=== PATIENT | female | born 1945 | race African-American/Black ===

== ENCOUNTER 2018-03-10 13:29 | Emergency (ER) | payer MEDICARE, BC ==
--- NOTE | 2018-03-10 15:07 | RADIOLOGY REPORT (SQ) ---
EXAM DESCRIPTION: KNEE RIGHT 3 VIEWS COMPLETED DATE/TIME: 03/10/2018 2:55 pm REASON FOR STUDY: fall pain COMPARISON: None. NUMBER OF VIEWS: Three views. TECHNIQUE: AP, lateral, and sunrise patella radiographic images acquired of the right knee. LIMITATIONS: None. FINDINGS: MINERALIZATION: Normal. BONES: No acute fracture or dislocation. No worrisome bone lesions. JOINT: No gross joint effusion. Advanced patellofemoral and medial compartment osteoarthritis with b one-on-bone appearance and bulky bony spurring. Moderate lateral compartment joint space narrowing w ith bony spurring SOFT TISSUES: No soft tissue swelling. No radio-opaque foreign body. OTHER: No other significant finding. IMPRESSION: Tricompartment osteoarthritis. No acute fracture or malalignment TECHNICAL DOCUMENTATION: JOB ID: [id number]- All Rights Reserved Reading location - IP/workstation name: [email or web address]
--- NOTE | 2018-03-10 15:08 | RADIOLOGY REPORT (SQ) ---
EXAM DESCRIPTION: HIP RIGHT AP/LATERAL COMPLETED DATE/TIME: 03/10/2018 2:55 pm REASON FOR STUDY: fall pain fell, injured, right hip pain COMPARISON: None. NUMBER OF VIEWS: Two views. TECHNIQUE: AP pelvis and additional frog-leg view of the right hip. LIMITATIONS: None. FINDINGS: MINERALIZATION: Normal. RIGHT HIP: No fracture or dislocation. No worrisome bone lesions. LEFT HIP: No fracture or dislocation. No worrisome bone lesions. PUBIS AND ISCHIUM: No fracture. PELVIS: No fracture. SACRUM: No fracture or dislocation. No worrisome bone lesions. Moderate bilateral SI joint sclerosis LOWER LUMBAR SPINE: Disc space loss of height and facet arthropathy at L4-5 and L5-S1 SOFT TISSUES: No findings. OTHER: No other significant finding. IMPRESSION: No acute fracture or malalignment right hip or bony pelvis TECHNICAL DOCUMENTATION: JOB ID: [id number] [employer]- All Rights Reserved Reading location - IP/workstation name: [email or web address]
--- NOTE | 2018-03-10 15:54 | ER Document Report ---
ED General - General Chief Complaint: Knee Pain Stated Complaint: DIZZINESS Time Seen by Provider: 03/10/18 13:41 TRAVEL OUTSIDE OF THE [place] IN LAST 30 DAYS: No - HPI Patient complains to provider of: Right knee pain Notes: Patient coming in for evaluation of right knee pain. Family at bedside. Family states approximately 1 week ago the patient fell off a porch and since that times had trouble with her right knee. States increasing pain in the last few days and decreasing ablation because of the pain. Patient also complaining of pain in the right hip. Patient otherwise denies any other symptoms denies any fever chills nausea by diarrhea denies any loss consciousness and the patient felt the fourth. Patient resting healthy upon my evaluation Past Medical History - Social History Smoking Status: Former Smoker Chew tobacco use (# tins/day): No Frequency of alcohol use: None Drug Abuse: None Family History: Reviewed & Not Pertinent Patient has suicidal ideation: No Patient has homicidal ideation: No Renal/ Medical History: Denies: Hx Peritoneal Dialysis Review of Systems - Review of Systems Constitutional: No symptoms reported EENT: No symptoms reported Cardiovascular: No symptoms reported Respiratory: No symptoms reported Gastrointestinal: No symptoms reported Genitourinary: No symptoms reported Female Genitourinary: No symptoms reported Musculoskeletal: Other - Knee pain Skin: No symptoms reported Hematologic/Lymphatic: No symptoms reported Neurological/Psychological: No symptoms reported -: Yes All other systems reviewed and negative Physical Exam - Vital signs Interpretation: Normal - General General appearance: Appears well, Alert - HEENT Head: Normocephalic, Atraumatic Eyes: Normal Pupils: PERRL - Respiratory Respiratory status: No respiratory distress Chest status: Nontender Breath sounds: Normal Chest palpation: Normal - Cardiovascular Rhythm: Regular Heart sounds: Normal auscultation Murmur: No - Abdominal Inspection: Morbidly Obese Distension: No distension Bowel sounds: Normal Tenderness: Nontender Organomegaly: No organomegaly - Back Back: Normal, Nontender - Extremities General upper extremity: Normal inspection, Nontender, Normal color, Normal ROM , Normal temperature General lower extremity: Normal inspection, Tender - Tenderness to palpation of the right knee and to the right hip, Normal color, Normal ROM, Normal temperature. No: Celine's sign - Neurological Neuro grossly intact: Yes Cognition: Normal Orientation: AAOx4 [place] Coma Scale Eye Opening: Spontaneous Rick Coma Scale Verbal: Oriented Rick Coma Scale Motor: Obeys Commands Rick Coma Scale Total: 15 Speech: Normal Motor strength normal: LUE, RUE, LLE, RLE Sensory: Normal - Psychological Associated symptoms: Normal affect, Normal mood - Skin Skin Temperature: Warm Skin Moisture: Dry Skin Color: Normal Course - Re-evaluation Re-evalutation: 03/10/18 19:04 X-rays are negative at this time does show diffuse arthritis no signs of fracture. Patient was given a Cade wrap lidocaine patch recommend Tylenol Motrin for pain control we will give the patient a prescription in for a walker that she is already using a cane for ambulation recommend follow-up with PCP. Discharge - Discharge Clinical Impression: Arthritis Knee pain Qualifiers: Chronicity: acute Laterality: right Qualified Code(s): M25.561 - Pain in right knee Condition: Good Disposition: HOME, SELF-CARE Instructions: Cade Wrap ([facility]), Family Physicians / Practices, Ice & Elevation ( [facility]), Sprained Knee ([facility]) Additional Instructions: Your evaluation does not show any signs of fracture however does show diffuse osteoarthritis within the right knee. I do believe any failure data G more likely sprained her knee I would highly recommend that she wear an Cade wrap for support and also use a walker when ambulating I would recommend following up with a primary care physician listed for further evaluation Tylenol and Motrin for pain he may also use Lidoderm patches that are available [id number]. Prescriptions: Ibuprofen [Motrin 600 mg Tablet] 600 mg PO Q8HP PRN #21 tablet PRN Reason: Walker [Folding Walker] 1 each MC ASDIR PRN #1 each PRN Reason: Referrals: TREASURE ROSE MD [HONORARY] - Follow up as needed
[2018-03-10] MEDS ORDERED: LIDOCAINE 5% (700 MG) TRANSDERMAL ADH..PATCH TP ONE (15:55)
== END 2018-03-10 20:48 | disposition home or self-care (01) ==
LOC: ER 13:29
DX: M17.11 Unilateral primary osteoarthritis, right knee (principal); M25.561 Pain in right knee; M25.551 Pain in right hip; W17.89XA Other fall from one level to another, initial encounter; Z87.891 Personal history of nicotine dependence
CPT/HCPCS: 99284

== ENCOUNTER 2018-03-20 15:59 | Inpatient (IN) | payer MEDICARE, BC ==
[2018-03-20] MEDS ORDERED: NORMAL SALINE 1000 ML 1,000 ML IV ONE (16:57)
[2018-03-20 17:27] LABS: ABSOLUTE BASOPHILS # (AUTO) 0.1 10^3/uL (0.0-0.2); ABSOLUTE EOSINOPHILS # (AUTO) 0.4 10^3/uL (0.0-0.6); ABSOLUTE LYMPHOCYTES (AUTO) 0.8 10^3/uL (0.5-4.7); ABSOLUTE MONOCYTES (AUTO) 1.1 10^3/uL (0.1-1.4); ABSOLUTE NEUT (AUTO) 11.1 10^3/uL (1.7-8.2); EOSINOPHILS % (AUTO) 2.7 % (0-6); HEMATOCRIT 42.4 % (36.0-47.0); HEMOGLOBIN 13.5 g/dL (12.0-15.5); LYMPHOCYTES % (AUTO) 5.9 % (13-45); MEAN CORPUSCULAR HEMOGLOBIN 27.1 pg (27.0-33.4); MEAN CORPUSCULAR HGB CONC 31.9 g/dL (32.0-36.0); MEAN CORPUSCULAR VOLUME 85 fl (80-97); MONOCYTES % (AUTO) 8.1 % (3-13); PLATELET COUNT 293 10^3/uL (150-450); RED BLOOD COUNT 4.99 10^6/uL (3.72-5.28); RED CELL DISTRIBUTION WIDTH 16.2 % (11.5-14.0); SEGMENTED NEUTROPHILS % (AUTO) 82.3 % (42-78); TOTAL CELLS COUNTED % (AUTO) 100 %; WHITE BLOOD COUNT 13.5 10^3/uL (4.0-10.5)
[2018-03-20 17:34] LABS: INTERNATIONAL RATION (INR) 1.01; PROTHROMBIN TIME 13.8 SEC (11.4-15.4)
--- NOTE | 2018-03-20 17:34 | RADIOLOGY REPORT (SQ) ---
EXAM DESCRIPTION: CHEST SINGLE VIEW COMPLETED DATE/TIME: 03/20/2018 5:23 pm REASON FOR STUDY: ams, tachycardia COMPARISON: None. EXAM PARAMETERS: NUMBER OF VIEWS: One view. TECHNIQUE: Single frontal radiographic view of the chest acquired. RADIATION DOSE: NA LIMITATIONS: None. FINDINGS: LUNGS AND PLEURA: No opacities, masses or pneumothorax. No pleural effusion. MEDIASTINUM AND HILAR STRUCTURES: No masses. Contour normal. HEART AND VASCULAR STRUCTURES: Heart size is borderline. There is ectasia of the ascending aorta. T ortuosity of the descending aorta. BONES: No acute findings. HARDWARE: None in the chest. OTHER: No other significant finding. IMPRESSION: Borderline cardiomegaly with no pulmonary edema. Ectasia of the ascending aorta and tor tuosity of the descending aorta. TECHNICAL DOCUMENTATION: JOB ID: [id number] [employer]- All Rights Reserved Reading location - IP/workstation name: [email or web address]
[2018-03-20 17:45] LABS: ALANINE AMINOTRANSFERASE 37 U/L (9-52); ALBUMIN 3.3 g/dL (3.5-5.0); ALKALINE PHOSPHATASE 89 U/L (38-126); ANION GAP 13 (5-19); ASPARTATE AMINO TRANSFERASE 89 U/L (14-36); BILIRUBIN,DIRECT 0.5 mg/dL (0.0-0.4); BILIRUBIN,TOTAL 1.1 mg/dL (0.2-1.3); BLOOD UREA NITROGEN 43 mg/dL (7-20); CALCIUM 8.6 mg/dL (8.4-10.2); CARBON DIOXIDE 26 mmol/L (22-30); CHLORIDE 103 mmol/L (98-107); GLUCOSE 108 mg/dL (75-110); POTASSIUM 5.5 mmol/L (3.6-5.0); SODIUM 141.5 mmol/L (137-145); TOTAL PROTEIN 7.7 g/dL (6.3-8.2)
[2018-03-20 18:22] LABS: VENOUS BLOOD BASE EXCESS 3.5 mmol/L; VENOUS BLOOD HCO3 29.6 mmol/L (20-32); VENOUS BLOOD PH 7.38 (7.30-7.42)
[2018-03-20] MEDS ORDERED: VANCOMYCIN HCL INJ 1000 MG VIAL IV ONE (18:27)
[2018-03-20] MEDS ORDERED: PIPERACILLIN/TAZOBACTAM 3.375 GM VIAL IV ONE (18:27)
--- NOTE | 2018-03-20 18:36 | ER Document Report ---
ED General - General Chief Complaint: Altered Mental Status Stated Complaint: ALTERED MENTAL STATUS Time Seen by Provider: 03/20/18 16:55 Mode of Arrival: Medic Information source: Patient, Relative Cannot obtain history due to: Altered mental status TRAVEL OUTSIDE OF THE [place] IN LAST 30 DAYS: No - HPI Patient complains to provider of: confusion Onset: Other - 72-year-old female that presents for evaluation of an episode of worsening confusion in the setting of a recent fall. Her son notes that he has not been living with her he came from [place] as she seemed to be more confused on the phone over the last 2 days. Her confusion has been progressively worsening and now she sits in the same place at home over the last week defecating on herself as well as urinating on the couch. He notes that this is a marked deviation from normal level of functioning. He is uncertain what health problems she does have but believes she might have high blood pressure. Is uncertain what medications she takes. Rest of history is limited secondary to this patient's altered mental status. - Related Data Allergies/Adverse Reactions: No Known Allergies Allergy (Verified 03/20/18 16:28) Past Medical History - General Information source: Patient, Relative - Social History Smoking Status: Former Smoker Family History: Reviewed & Not Pertinent Renal/ Medical History: Denies: Hx Peritoneal Dialysis Review of Systems - Review of Systems -: Yes All other systems reviewed and negative Physical Exam - Vital signs Vitals: Resp BP Pulse Ox 18 164/139 H 100 03/20/18 16:08 03/20/18 16:08 03/20/18 16:08 - General General appearance: Lethargic In distress: Mild - HEENT Head: Normocephalic Eyes: Normal Conjunctiva: Normal Cornea: Normal Extraocular movements intact: Yes Eyelashes: Normal Pupils: PERRL - Respiratory Respiratory status: No respiratory distress Chest status: Nontender Breath sounds: Normal Chest palpation: Normal - Cardiovascular Rhythm: Tachycardia Heart sounds: Normal auscultation Murmur: No - Abdominal Inspection: Morbidly Obese Distension: No distension Tenderness: Nontender Organomegaly: No organomegaly - Back Back: Normal - Extremities General upper extremity: Normal inspection, Nontender, Normal strength, Normal temperature General lower extremity: Other - The right lower extremity demonstrates grade 2 skin breakdown over the right hamstring - Neurological Neuro grossly intact: No Cognition: Confused, Inattentive, Short term memory loss Orientation: Disoriented to time, Disoriented to events Rick Coma Scale Eye Opening: Spontaneous [place] Coma Scale Verbal: Confused Rick Coma Scale Motor: Obeys Commands [place] Coma Scale Total: 14 Speech: Dysarthria Cranial nerves: Normal Motor strength normal: LUE, RUE, LLE, RLE - Psychological Associated symptoms: Flat affect Course - Re-evaluation Re-evalutation: 03/20/18 18:36 72-year-old presents for evaluation of altered mental status in the setting of previously normal functioning. Noted to recently have had a fall preceding her worsening altered mental status. We will plan for broad workup as this patient has a nonfocal neurologic exam with global cognitive slowing. We will plan for CT of the head blood cultures blood gas. Patient not activated as a stroke alert as she has a nonfocal neurologic examination and has had these symptoms for several days. This woman has obvious skin breakdown and feces extending over her lower lip extremities. We will plan for placement of a Villaseñor catheter for hygiene. We will plan for broad-spectrum antibiotics. Patient with negative urinalysis, patient with negative chest x-ray, likely her source of infection is her skin breakdown and developing cellulitis in the right lower extremity. Current plan will be for x-rays as patient did have a fall and is now nonambulatory along the right side. We will defer further diagnostics and plan for admission to the hospital with reassessment. Patient is confused potentially from her uremia or her systemic illness though she is redirectable and intermittently communicative. X-rays are nondiagnostic at this point. The patient continues to be somewhat altered, have added on a CK at the suggestion of the hospitalist for potential rhabdomyolysis. Given her constellation of symptoms believe that she could be developing a severe septic picture, rhabdomyolysis, though she does not have obvious signs of gangrene or necrotizing infection have a concern that these may be developing as well. Plan will be for admission to the hospital for ongoing administration of broad-spectrum antibiotics. We will plan for continue monitoring in the emergency department until she is appropriately disposition and transported by hospitalist service. Have spoken on-call hospitalist who agrees to evaluate this patient and admit to hospital. - Vital Signs Vital signs: Temp Pulse Resp BP Pulse Ox 98.7 F 109 H 18 128/85 H 95 03/21/18 03:56 03/21/18 03:56 03/21/18 03:56 03/21/18 03:56 03/21/18 03:56 - Laboratory Result Diagrams: 03/21/18 05:32 03/21/18 05:32 Laboratory results interpreted by me: 03/20/18 03/20/18 03/20/18 17:10 17:10 18:12 WBC 13.5 H MCHC 31.9 L RDW 16.2 H Seg Neutrophils % 82.3 H Lymphocytes % 5.9 L Absolute Neutrophils 11.1 H Potassium 5.5 H BUN 43 H Est GFR ( Amer) 58 L Est GFR (Non-Af Amer) 48 L Direct Bilirubin 0.5 H AST 89 H Albumin 3.3 L Urine Ketones TRACE H Urine Blood SMALL H Urine Urobilinogen 4.0 H Discharge - Discharge Clinical Impression: Tachycardia, Confusion, Dehydration Cellulitis Qualifiers: Site of cellulitis: buttock Qualified Code(s): L03.317 - Cellulitis of buttock Decubital ulcer Qualifiers: Pressure injury location: thigh Pressure injury stage: stage 2 Laterality: right Qualified Code(s): L89.212 - Pressure ulcer of right hip, stage 2 Condition: Stable Disposition: ADMITTED INPATIENT Admitting Provider: Hospitalist Unit Admitted: [facility]
[2018-03-20 18:48] LABS: APPEARANCE,URINE SLIGHTLY-CLOUDY; BILIRUBIN,URINE NEGATIVE (NEGATIVE); COLOR,URINE YELLOW; GLUCOSE, URINE NEGATIVE (NEGATIVE); KETONES,URINE TRACE mg/dL (NEGATIVE); LEUKOCYTE ESTERASE,URINE NEGATIVE (NEGATIVE); NITRITE,URINE NEGATIVE (NEGATIVE); PROTEIN,URINE NEGATIVE (NEGATIVE); URINE SPECIFIC GRAVITY 1.023
--- NOTE | 2018-03-20 18:58 | RADIOLOGY REPORT (SQ) ---
EXAM DESCRIPTION: CT HEAD WITHOUT COMPLETED DATE/TIME: 03/20/2018 6:45 pm REASON FOR STUDY: confusion COMPARISON: None. TECHNIQUE: Axial images acquired through the brain without intravenous contrast. Images reviewed wi th bone, brain and subdural windows. Additional sagittal and coronal reconstructions were generated. Images stored on PACS. All CT scanners at this facility use dose modulation, iterative reconstruction, and/or weight based d osing when appropriate to reduce radiation dose to as low as reasonably achievable (ALARA). [facility]: Dose Right [facility]: CareDose [facility]: Dose Right [facility]: Teradose 4D [facility]: LaunchGram RADIATION DOSE: CT Rad equipment meets quality standard of care and radiation dose reduction techniq ues were employed. CTDIvol: 53.2 mGy. DLP: 884 mGy-cm. mGy. LIMITATIONS: None. FINDINGS: VENTRICLES: Prominent. CEREBRUM: No masses. No hemorrhage. No midline shift. Areas of low density in the white matter mos t likely due to chronic micro-vascular ischemic change. No evidence for acute infarction. CEREBELLUM: No masses. No hemorrhage. No alteration of density. No evidence for acute infarction. EXTRAAXIAL SPACES: Mild age-related involutional change. No fluid collections. No masses. ORBITS AND GLOBE: No intra- or extraconal masses. Normal contour of globe without masses. CALVARIUM: No fracture. PARANASAL SINUSES: No fluid or mucosal thickening. SOFT TISSUES: No mass or hematoma. OTHER: No other significant finding. IMPRESSION: MILD CHRONIC CHANGES OF ATROPHY AND MICROVASCULAR ISCHEMIA. NO ACUTE PROCESS. EVIDENCE OF ACUTE STROKE: NO. TECHNICAL DOCUMENTATION: JOB ID: [id number] Quality ID # [id number]: Final reports with documentation of one or more dose reduction techniques (e.g., Au tomated exposure control, adjustment of the mA and/or kV according to patient size, use of iterative reconstruction technique) 2010 [employer]- All Rights Reserved Reading location - IP/workstation name: [email or web address]
--- NOTE | 2018-03-20 19:36 | EKG REPORT ---
SEVERITY:- ABNORMAL ECG - SINUS TACHYCARDIA ATRIAL PREMATURE COMPLEX NONSPECIFIC T ABNORMALITIES, LATERAL LEADS : Confirmed by: Jose Spears MD 20-Mar-2018 19:35:23
--- NOTE | 2018-03-20 20:14 | RADIOLOGY REPORT (SQ) ---
EXAM DESCRIPTION: PELVIS AP COMPLETED DATE/TIME: 03/20/2018 8:01 pm REASON FOR STUDY: fall and leg swelling COMPARISON: None. NUMBER OF VIEWS: One view TECHNIQUE: AP Pelvis LIMITATIONS: None. FINDINGS: MINERALIZATION: Normal. HIPS: No acute fracture or dislocation. No worrisome bone lesions. PELVIS AND SACRUM: No acute fracture or dislocation. No worrisome bone lesions. PUBIS AND ISCHIUM: No acute fracture. LOWER LUMBAR SPINE: Degenerative changes. SOFT TISSUES: No findings. OTHER: No other significant finding. IMPRESSION: Lower lumbar degenerative changes. No acute abnormality in the pelvis. TECHNICAL DOCUMENTATION: JOB ID: [id number] [employer]- All Rights Reserved Reading location - IP/workstation name: [email or web address]
--- NOTE | 2018-03-20 20:15 | RADIOLOGY REPORT (SQ) ---
EXAM DESCRIPTION: FEMUR RIGHT COMPLETED DATE/TIME: 03/20/2018 8:01 pm REASON FOR STUDY: fall and leg swelling COMPARISON: None. NUMBER OF VIEWS: Two views. TECHNIQUE: Two radiographic images acquired of the right femur to include hip and knee in at least o ne projection. LIMITATIONS: None. FINDINGS: MINERALIZATION: Normal. BONES: No acute fracture. No worrisome bone lesions. SOFT TISSUES: No obvious swelling or foreign body. OTHER: Extensive degenerative joint disease at the knee. IMPRESSION: Degenerative joint disease at the knee. No acute abnormality in the femur. TECHNICAL DOCUMENTATION: JOB ID: [id number] [employer]- All Rights Reserved Reading location - IP/workstation name: [email or web address]
[2018-03-20] MEDS ORDERED: RINGERS SOLUTION,LACTATED 1,000 ML IV ONE (20:38)
[2018-03-20] MEDS ORDERED: IPRATROPIUM/ALBUTEROL 0.5-2.5 MG/3 ML AMPUL NEB PRN (21:14)
[2018-03-20] MEDS ORDERED: MAG HYDROX/AL HYDROX/SIMETH SUSP 30 ML UDCUP PO PRN (21:14)
[2018-03-20] MEDS ORDERED: NORMAL SALINE 1000 ML 1,000 ML IV SCH (21:15)
[2018-03-20] MEDS ORDERED: LACTULOSE SYRUP 20 GM/30 ML UDCUP PO ONE (22:00)
[2018-03-20] MEDS ORDERED: VANCOMYCIN HCL INJ 1000 MG VIAL ONE (22:11)
[2018-03-20 22:29] LABS: URINE AMPHETAMINES SCREEN NEGATIVE; URINE BARBITURATES SCREEN NEGATIVE; URINE BENZODIAZEPINES SCREEN NEGATIVE; URINE COCAINE SCREEN NEGATIVE; URINE MARIJUANA (THC) SCREEN NEGATIVE; URINE METHADONE SCREEN NEGATIVE; URINE PHENCYCLIDINE SCREEN NEGATIVE
[2018-03-20] MEDS: HEPARIN SOD (PORCINE) 5,000 UNIT/ML 1 ML SYRINGE SUBCUT SCH (22:57)
[2018-03-21 01:05] LABS: PHOSPHORUS 4.6 mg/dL (2.5-4.5)
[2018-03-21 01:42] LABS: CREATINE KINASE MB 2.55 ng/mL (<4.55); TROPONIN I 0.031 ng/mL
[2018-03-21 03:19] LABS: FREE T3 2.23 pg/mL (2.77-5.27); FREE T4 (FREE THYROXINE) 1.9 ng/dL (0.78-2.19)
[2018-03-21 04:50] LABS: THYROID STIMULATING HORMONE 0.95 uIU/mL (0.47-4.68)
--- NOTE | 2018-03-21 05:34 | PDOC H&P ---
History of Present Illness Admission Date/PCP: 03/20/18 21:10 Patient complains of: Altered mental status History of Present Illness: PAPI BEAULIEU is a 72 year old female with a past medical history of fall 10 days ago. She was seen in the emergency room at that time not found to have an acute injury and discharged home however she has been completely nonambulatory and stopped speaking. She is brought to the emergency room by family members for evaluation where she has an unremarkable CT of the head,, leukocytosis and rhabdomyolysis. She is referred to the hospitalist for admission. Patient is completely unable to cooperate with the exam and is nonverbal seemingly neglecting the right side. Medical history is otherwise unavailable. EKG is in sinus rhythm. Past Medical History Medical History: Other - Unobtainable Social History Information Source: [facility] Records Lives with: Family Smoking Status: Never Smoker Frequency of Alcohol Use: None Hx Prescription Drug Abuse: No Family History Family History: Other - Unobtainable Parental Family History Reviewed: No Children Family History Reviewed: No Sibling(s) Family History Reviewed.: No Medication/Allergy Home Medications: Ibuprofen [Motrin 600 mg Tablet] 600 mg PO Q8HP PRN #21 tablet 03/10/18 Walker [Folding Walker] 1 each MC ASDIR PRN #1 each 03/10/18 Allergies/Adverse Reactions: No Known Allergies Allergy (Verified 03/20/18 16:28) Review of Systems ROS unobtainable: Due to mental status - Aphasia Physical Exam Vital Signs: Temp Pulse Resp BP Pulse Ox 98.7 F 109 H 18 128/85 H 95 03/21/18 03:56 03/21/18 03:56 03/21/18 03:56 03/21/18 03:56 03/21/18 03:56 General appearance: PRESENT: disheveled, morbidly obese, severe distress. ABSENT: no acute distress Head exam: PRESENT: atraumatic, normocephalic Eye exam: PRESENT: conjunctiva pink, EOMI, PERRLA. ABSENT: scleral icterus Ear exam: PRESENT: normal external ear exam Mouth exam: PRESENT: moist, tongue midline Neck exam: ABSENT: carotid bruit, JVD, lymphadenopathy, thyromegaly Respiratory exam: PRESENT: clear to auscultation santa. ABSENT: rales, rhonchi, wheezes Cardiovascular exam: PRESENT: RRR. ABSENT: diastolic murmur, rubs, systolic murmur Pulses: PRESENT: normal dorsalis pedis pul Vascular exam: PRESENT: normal capillary refill GI/Abdominal exam: PRESENT: normal bowel sounds, soft. ABSENT: distended, guarding, mass, organolmegaly, rebound, tenderness Rectal exam: PRESENT: deferred Extremities exam: PRESENT: tenderness, +1 edema Musculoskeletal exam: PRESENT: other - Large right thigh stage II decubiti Neurological exam: PRESENT: altered, aphasic. ABSENT: oriented to person, oriented to place, oriented to time, oriented to situation, reflexes normal, CN II-XII grossly intact Psychiatric exam: PRESENT: flat affect Results Laboratory Results: 03/20/18 03/20/18 23:25 23:25 Phosphorus 4.6 H Magnesium 2.5 H TSH 0.95 Free T4 1.90 Free T3 pg/mL 2.23 L 03/20/18 03/20/18 23:25 23:25 Creatine Kinase 2185 H CK-MB (CK-2) 2.55 Troponin I 0.031 Impressions: Head CT 03/20/18 16:56 IMPRESSION: MILD CHRONIC CHANGES OF ATROPHY AND MICROVASCULAR ISCHEMIA. NO ACUTE PROCESS. EVIDENCE OF ACUTE STROKE: NO. Chest X-Ray 03/20/18 16:57 IMPRESSION: Borderline cardiomegaly with no pulmonary edema. Ectasia of the ascending aorta and tortuosity of the descending aorta. Femur X-Ray 03/20/18 19:22 IMPRESSION: Degenerative joint disease at the knee. No acute abnormality in the femur. Pelvis X-Ray 03/20/18 19:22 IMPRESSION: Lower lumbar degenerative changes. No acute abnormality in the pelvis. Assessment & Plan - Diagnosis (1) CVA (cerebral vascular accident) Is this a current diagnosis for this admission?: Yes Plan: Patient's functional decline 10 days ago, now right-sided week with contracture , nonverbal for unclear duration, CVA care set, aspirin, Plavix, follow-up MRI, carotid Doppler, echo (2) Rhabdomyolysis Is this a current diagnosis for this admission?: Yes Plan: Secondary to #1, IV fluid challenge, follow-up total CK and chemistry (3) Encephalopathy Is this a current diagnosis for this admission?: Yes Plan: Secondary to aphasia, supportive care (4) Decubital ulcer Qualifiers: Pressure injury location: thigh Pressure injury stage: stage 2 Laterality : right Qualified Code(s): L89.212 - Pressure ulcer of right hip, stage 2 Is this a current diagnosis for this admission?: Yes Plan: Supportive measures, specialty bed - Time Time Spent: 50 to 70 Minutes - Inpatient Certification Medical Necessity: Need Close Monitoring Due to Risk of Patient Decompensation
[2018-03-21] MEDS ORDERED: ASPIRIN 325 MG TABLET ONE (05:35)
[2018-03-21] MEDS ORDERED: ATORVASTATIN CALCIUM 80 MG TABLET PO ONE (05:45)
[2018-03-21] MEDS ORDERED: LACTULOSE SYRUP 20 GM/30 ML UDCUP PO ONE (05:45)
[2018-03-21] MEDS ORDERED: ASPIRIN 325 MG TABLET PO ONE (05:45)
[2018-03-21] MEDS: HEPARIN SOD (PORCINE) 5,000 UNIT/ML 1 ML SYRINGE SUBCUT SCH ×3 (05:46→22:06)
[2018-03-21 05:51] LABS: ABSOLUTE BASOPHILS # (AUTO) 0.1 10^3/uL (0.0-0.2); ABSOLUTE EOSINOPHILS # (AUTO) 0.4 10^3/uL (0.0-0.6); ABSOLUTE LYMPHOCYTES (AUTO) 1.2 10^3/uL (0.5-4.7); ABSOLUTE MONOCYTES (AUTO) 0.9 10^3/uL (0.1-1.4); ABSOLUTE NEUT (AUTO) 9.2 10^3/uL (1.7-8.2); BASOPHILS % (AUTO) 0.8 % (0-2); EOSINOPHILS % (AUTO) 3.7 % (0-6); HEMATOCRIT 34.7 % (36.0-47.0); LYMPHOCYTES % (AUTO) 10.1 % (13-45); MEAN CORPUSCULAR HEMOGLOBIN 26.7 pg (27.0-33.4); MEAN CORPUSCULAR HGB CONC 31.9 g/dL (32.0-36.0); MEAN CORPUSCULAR VOLUME 84 fl (80-97); MONOCYTES % (AUTO) 7.4 % (3-13); PLATELET COUNT 265 10^3/uL (150-450); RED BLOOD COUNT 4.14 10^6/uL (3.72-5.28); TOTAL CELLS COUNTED % (AUTO) 100 %; WHITE BLOOD COUNT 11.9 10^3/uL (4.0-10.5)
[2018-03-21 05:56] LABS: HEMOGLOBIN 11.1 g/dL (12.0-15.5)
[2018-03-21 06:07] LABS: ANION GAP 7 (5-19); BLOOD UREA NITROGEN 32 mg/dL (7-20); CALCIUM 7.8 mg/dL (8.4-10.2); CARBON DIOXIDE 28 mmol/L (22-30); CHLORIDE 105 mmol/L (98-107); GLUCOSE 102 mg/dL (75-110); SODIUM 140.4 mmol/L (137-145)
[2018-03-21 06:17] LABS: CREATINE KINASE MB 1.84 ng/mL (<4.55); TROPONIN I 0.032 ng/mL
[2018-03-21 06:19] LABS: POTASSIUM 4.4 mmol/L (3.6-5.0)
[2018-03-21] MEDS ORDERED: KETOROLAC TROMETHAMINE INJ/PF 30 MG/1 ML SDV ONE (10:01)
[2018-03-21] MEDS ORDERED: KETOROLAC TROMETHAMINE INJ/PF 30 MG/1 ML SDV IV ONE (10:30)
--- NOTE | 2018-03-21 10:47 | RADIOLOGY REPORT (SQ) ---
EXAM DESCRIPTION: MRI HEAD WITHOUT COMPLETED DATE/TIME: 03/21/2018 10:33 am REASON FOR STUDY: ataxia COMPARISON: CT brain 03/20/2018 TECHNIQUE: Multiplanar imaging includes non-contrasted T1, T2, FLAIR, and diffusion with ADC map seq uences. Images stored on PACS. LIMITATIONS: None. FINDINGS: ANATOMY: No developmental anomalies. Normal vascular flow voids. Pituitary fossa normal. CSF SPACES: Normal in size and contour. No hemorrhage. CEREBRUM: Diffusion-weighted images are positive for acute nonhemorrhagic ischemic change in the left frontal parasagittal cortex and subcortical white matter, along the anterior cerebral artery distrib ution. Findings called to Dr. Calderon, 03/21/2018, 1030 hours. FLAIR and T2 images demonstrate moderate bifrontal and biparietal chronic appearing small vessel isch emic change with old lacunar infarcts in the right and left thalamus. No acute intracranial hemorrhage, mass effect, or midline shift POSTERIOR FOSSA: No signal alteration. No hemorrhage. No edema, masses or mass effect. Internal jeni tory canals, cerebello-pontine angles, mastoids normal. DIFFUSION IMAGING: Diffusion-weighted images are positive for acute nonhemorrhagic ischemic change i n the left frontal parasagittal cortex and subcortical white matter, along the anterior cerebral saji ry distribution. Findings called to Dr. Calderon, 03/21/2018, 1030 hours. ORBITS: No masses. Globes normal. PARANASAL SINUSES: No fluid levels. Mucosa normal. OTHER: No other significant finding. IMPRESSION: Acute nonhemorrhagic infarct left parasagittal frontal lobe and anterior cerebral artery distribution Moderate chronic small vessel ischemic change in the hemispheric white matter with old bilateral thal amic lacunar infarcts EVIDENCE OF ACUTE STROKE: Yes. COMMENT: Pertinent findings on the imaging study reported as a CRITICAL RESULT to HOLLY RAPP at10:3 0 on 03/21/2018. Category of Critical Result: ACUTE stroke TECHNICAL DOCUMENTATION: JOB ID: [id number] [employer]- All Rights Reserved Reading location - IP/workstation name: [email or web address]
[2018-03-21] MEDS: DOCUSATE SODIUM 100 MG CAPSULE PO SCH ×2 (11:51→19:28)
[2018-03-21 12:50] LABS: CREATINE KINASE MB 1.47 ng/mL (<4.55); TROPONIN I 0.034 ng/mL
[2018-03-21] MEDS ORDERED: MORPHINE SULFATE 10 MG/ML INJ ONE ×2 (13:35→17:07)
[2018-03-21] MEDS ORDERED: SILVER SULFADIAZINE 1% CREAM 50 GM TP SCH (15:00)
--- NOTE | 2018-03-21 15:21 | PDOC PROGRESS REPORT ---
Subjective Progress Note for:: 03/21/18 Subjective:: No adverse events overnight. Blood pressures have been stable. She still not talking but is opening her eyes to verbal command. She was apparently in some pain earlier but could not express where and we gave her some Toradol and she is been able to sleep since then. She still not been able to use her right side according to her family. Reason For Visit: HYPERKALEMIA, INTRACTABLE PAIN FALLS Physical Exam Vital Signs: Temp Pulse Resp BP Pulse Ox 99.0 F 103 H 20 131/79 H 100 03/21/18 12:01 03/21/18 12:01 03/21/18 12:01 03/21/18 12:01 03/21/18 12:01 Intake & Output 03/20/18 03/21/18 03/22/18 06:59 06:59 06:59 Intake Total 266 Output Total 550 Balance -284 Weight 123.2 kg General appearance: PRESENT: no acute distress, disheveled, morbidly obese Respiratory exam: PRESENT: clear to auscultation santa, symmetrical, unlabored. ABSENT: accessory muscle use, rales, rhonchi, tachypnea, wheezes Cardiovascular exam: PRESENT: RRR, +S1, +S2. ABSENT: diastolic murmur, systolic murmur GI/Abdominal exam: PRESENT: normal bowel sounds, soft. ABSENT: distended, guarding, rebound, tenderness Extremities exam: ABSENT: clubbing, joint swelling Musculoskeletal exam: PRESENT: normal inspection. ABSENT: ambulatory, deformity Neurological exam: PRESENT: awake, motor sensory deficit - Cannot move her right side, aphasic Skin exam: PRESENT: dry, warm Results Laboratory Results: 03/21/18 05:32 03/21/18 05:32 03/20/18 03/20/18 03/21/18 23:25 23:25 05:32 WBC 11.9 H RBC 4.14 Hgb 11.1 L D Hct 34.7 L MCV 84 MCH 26.7 L MCHC 31.9 L RDW 16.0 H Plt Count 265 Seg Neutrophils % 78.0 Lymphocytes % 10.1 L Monocytes % 7.4 Eosinophils % 3.7 Basophils % 0.8 Absolute Neutrophils 9.2 H Absolute Lymphocytes 1.2 Absolute Monocytes 0.9 Absolute Eosinophils 0.4 Absolute Basophils 0.1 Sodium Potassium Chloride Carbon Dioxide Anion Gap BUN Creatinine Est GFR ( Amer) Est GFR (Non-Af Amer) Glucose Calcium Phosphorus 4.6 H Magnesium 2.5 H TSH 0.95 Free T4 1.90 Free T3 pg/mL 2.23 L 03/21/18 05:32 WBC RBC Hgb Hct MCV MCH MCHC RDW Plt Count Seg Neutrophils % Lymphocytes % Monocytes % Eosinophils % Basophils % Absolute Neutrophils Absolute Lymphocytes Absolute Monocytes Absolute Eosinophils Absolute Basophils Sodium 140.4 Potassium 4.4 D Chloride 105 Carbon Dioxide 28 Anion Gap 7 BUN 32 H Creatinine 0.95 Est GFR ( Amer) > 60 Est GFR (Non-Af Amer) 58 L Glucose 102 Calcium 7.8 L Phosphorus Magnesium TSH Free T4 Free T3 pg/mL 03/20/18 03/20/18 03/21/18 23:25 23:25 05:32 Creatine Kinase 2185 H 1567 H CK-MB (CK-2) 2.55 Troponin I 0.031 03/21/18 03/21/18 03/21/18 05:32 11:33 11:33 Creatine Kinase 1211 H CK-MB (CK-2) 1.84 1.47 Troponin I 0.032 0.034 Impressions: Head CT 03/20/18 16:56 IMPRESSION: MILD CHRONIC CHANGES OF ATROPHY AND MICROVASCULAR ISCHEMIA. NO ACUTE PROCESS. EVIDENCE OF ACUTE STROKE: NO. Chest X-Ray 03/20/18 16:57 IMPRESSION: Borderline cardiomegaly with no pulmonary edema. Ectasia of the ascending aorta and tortuosity of the descending aorta. Femur X-Ray 03/20/18 19:22 IMPRESSION: Degenerative joint disease at the knee. No acute abnormality in the femur. Pelvis X-Ray 03/20/18 19:22 IMPRESSION: Lower lumbar degenerative changes. No acute abnormality in the pelvis. Head MRI 03/21/18 05:34 IMPRESSION: Acute nonhemorrhagic infarct left parasagittal frontal lobe and anterior cerebral artery distribution Moderate chronic small vessel ischemic change in the hemispheric white matter with old bilateral thalamic lacunar infarcts EVIDENCE OF ACUTE STROKE: Yes. Assessment & Plan - Diagnosis (1) Acute left arterial ischemic stroke, GERSON (anterior cerebral artery) Is this a current diagnosis for this admission?: Yes Plan: Evidence of this on MRI. Also evidence of prior bilateral lacunar infarcts in the thalamus. Currently on aspirin and a statin. Her blood pressure is actually within the normal range. Her family says she is not diabetic but will check into this little bit more. Will order speech therapy, physical therapy, occupational therapy. Echocardiogram and carotid Dopplers were previously ordered. - Time Time Spent with patient: 25-34 minutes
--- NOTE | 2018-03-21 16:08 | RADIOLOGY REPORT (SQ) ---
EXAM DESCRIPTION: CAROTID DOPPLER COMPLETED DATE/TIME: 03/21/2018 3:55 pm REASON FOR STUDY: Right-sided weakness and aphasia COMPARISON: MRI brain 03/21/2018 CT brain 03/20/2018 TECHNIQUE: Grayscale ultrasound, Doppler velocity and spectra, and color Doppler images acquired of the extra-cranial carotid and vertebral arteries. Images stored on PACS. LIMITATIONS: None. FINDINGS: RIGHT CAROTID CCA Velocities: Within normal limits. Right common carotid peak systolic velocity 0.8 m/sec ICA Velocities Peak systolic 0.40 m/s. End diastolic 0.17 m/s. Proximal ICA/CCA peak systolic ratio 1.0. Spectra normal. No significant plaque. LEFT CAROTID CCA Velocities: Within normal limits. Left common carotid artery peak systolic velocity 0.68 m/sec ICA Velocities Peak systolic 0.66 m/s. End diastolic 0.10 m/s. Proximal ICA/CCA peak systolic ratio 1.0. Spectra normal. No significant plaque. VERTEBRAL ARTERIES: Antegrade flow. Normal waveforms. SUBCLAVIAN ARTERIES: Not evaluated OTHER: No other significant finding. IMPRESSION: NO HEMODYNAMICALLY SIGNIFICANT STENOSIS. COMMENT: Quality ID #[id number]: Velocity criteria are extrapolated from the diameter data as defined by t he Society of Radiologists in Ultrasound Consensus Conference. Radiology 2003: 229; 340-346. TECHNICAL DOCUMENTATION: JOB ID: [id number] [employer]- All Rights Reserved Reading location - IP/workstation name: [email or web address]
[2018-03-21] MEDS: MORPHINE SULFATE 10 MG/ML INJ IV PRN (17:10)
[2018-03-21] MEDS: SILVER SULFADIAZINE 1% CREAM 400 GM TP SCH ×2 (18:40→22:07)
[2018-03-21] MEDS: ATORVASTATIN CALCIUM 80 MG TABLET PO SCH (22:06)
[2018-03-22] MEDS ORDERED: NORMAL SALINE 1000 ML 1,000 ML IV PRN (03:25)
[2018-03-22 05:04] LABS: ABSOLUTE BASOPHILS # (AUTO) 0.1 10^3/uL (0.0-0.2); ABSOLUTE EOSINOPHILS # (AUTO) 0.5 10^3/uL (0.0-0.6); ABSOLUTE LYMPHOCYTES (AUTO) 1.3 10^3/uL (0.5-4.7); ABSOLUTE MONOCYTES (AUTO) 0.8 10^3/uL (0.1-1.4); ABSOLUTE NEUT (AUTO) 6.1 10^3/uL (1.7-8.2); EOSINOPHILS % (AUTO) 5.4 % (0-6); HEMATOCRIT 33.6 % (36.0-47.0); HEMOGLOBIN 10.8 g/dL (12.0-15.5); LYMPHOCYTES % (AUTO) 15.3 % (13-45); MEAN CORPUSCULAR HEMOGLOBIN 27.2 pg (27.0-33.4); MEAN CORPUSCULAR HGB CONC 32.2 g/dL (32.0-36.0); MEAN CORPUSCULAR VOLUME 84 fl (80-97); MONOCYTES % (AUTO) 8.7 % (3-13); PLATELET COUNT 280 10^3/uL (150-450); RED BLOOD COUNT 3.99 10^6/uL (3.72-5.28); RED CELL DISTRIBUTION WIDTH 16.2 % (11.5-14.0); SEGMENTED NEUTROPHILS % (AUTO) 69.6 % (42-78); TOTAL CELLS COUNTED % (AUTO) 100 %; WHITE BLOOD COUNT 8.8 10^3/uL (4.0-10.5)
[2018-03-22] MEDS: HEPARIN SOD (PORCINE) 5,000 UNIT/ML 1 ML SYRINGE SUBCUT SCH ×3 (05:04→21:41)
[2018-03-22] MEDS: MORPHINE SULFATE 10 MG/ML INJ IV PRN ×2 (05:05→20:00)
[2018-03-22 05:22] LABS: ANION GAP 9 (5-19); BLOOD UREA NITROGEN 31 mg/dL (7-20); CALCIUM 7.8 mg/dL (8.4-10.2); CARBON DIOXIDE 27 mmol/L (22-30); CHLORIDE 104 mmol/L (98-107); CHOLESTEROL 55.31 mg/dL (0-200); GLUCOSE 99 mg/dL (75-110); POTASSIUM 4.7 mmol/L (3.6-5.0); SODIUM 139.8 mmol/L (137-145); TRIGLYCERIDES 87 mg/dL (<150)
[2018-03-22 05:38] LABS: DIRECT LDL < 30 mg/dL (<100)
[2018-03-22] MEDS ORDERED: ASPIRIN 325 MG TABLET PO SCH (10:00)
[2018-03-22] MEDS: SILVER SULFADIAZINE 1% CREAM 400 GM TP SCH ×4 (10:33→21:46)
[2018-03-22] MEDS: DOCUSATE SODIUM 100 MG CAPSULE PO SCH ×2 (12:29→17:49)
--- NOTE | 2018-03-22 12:58 | XCELERA REPORT ---
[address] [address] Transthoracic Echocardiogram Report Name: PAPI BEAULIEU Age: 72 yrs Gender: Female : 1945 Patient Status: Inpatient Patient Location: [address] [place], [place] [address] Study Date: 03/21/2018 02:28 PM Procedure: A two-dimensional transthoracic echocardiogram with color flow and Doppler was performed. The study was technically difficult with many images being suboptimal in quality. Reason For Study: CVA History: CVA. Ordering Physician: MAITE AMEZCUA Performed By: Melisa Ace Interpretation Summary There is no obvious cardiac source of embolus noted on this transthoracic echocardiogram. Follow-up with a OSKAR is suggested if cardiac source is still suspected. CVA The left ventricle is normal in size. There is normal left ventricular wall thickness. LV EF is 70% Left ventricular systolic function is normal. Doppler measurements suggest pseudonormalized left ventricular relaxation, which is associated with grade II/IV or mild to moderate diastolic dysfunction The left ventricular wall motion is normal. There is no thrombus. The right ventricle is normal in size and function. The right atrium is normal. The left atrial size is normal. There is no evidence of mitral valve prolapse. There is no vegetation seen on the mitral valve. There is no mitral valve stenosis. There is no mitral regurgitation noted. There is no aortic valvular vegetation. There is mild aortic stenosis There is a peak gradient of 20.37 mm of Hg. There is no LVOT obstruction. No aortic regurgitation is present. There is no tricuspid stenosis. There is a trace amount of tricuspid regurgitation There is mild pulmonary hypertension by echo RVSP is 36 to 41 mm of Hg , with RA mean of 5 to 10. The inferior vena cava appeared normal and decreased > 50% with respiration (RAP 5-10 mmHg) There is no pericardial effusion. There is no obvious cardiac source of embolus noted on this transthoracic echocardiogram. Follow-up with a OSKAR is suggested if cardiac source is still suspected MMode/2D Measurements & Calculations RVDd: 3.3 cm LVIDd: 4.8 cm FS: 41.0 % Ao root diam: 2.9 cm IVSd: 1.0 cm LVIDs: 2.8 cm EDV(Teich): 107.9 ml Ao root area: 6.5 cm2 LVPWd: 1.1 cm ESV(Teich): 30.5 ml EF(Teich): 71.7 % Doppler Measurements & Calculations MV E max teodoro: MV dec slope: Ao V2 max: LV V1 max P.5 cm/sec 225.6 cm/sec 9.0 mmHg MV A max teodoro: 769.8 cm/sec2 Ao max PG: LV V1 mean P.5 cm/sec MV dec time: 20.4 mmHg 4.9 mmHg MV E/A: 0.58 0.08 sec Ao V2 mean: LV V1 max: 172.6 cm/sec 149.5 cm/sec Ao mean PG: LV V1 mean: 12.7 mmHg 99.9 cm/sec Ao V2 VTI: 37.4 cm LV V1 VTI: 27.1 cm PA V2 max: TR max teodoro: 119.3 cm/sec 277.8 cm/sec PA max P.7 mmHg TR max P.9 mmHg Left Ventricle The left ventricle is normal in size. There is normal left ventricular wall thickness. LV EF is 70%. Left ventricular systolic function is normal. Doppler measurements suggest pseudonormalized left ventricular relaxation, which is associated with grade II/IV or mild to moderate diastolic dysfunction. The left ventricular wall motion is normal. There is no thrombus. Right Ventricle The right ventricle is normal in size and function. Atria The right atrium is normal. The left atrial size is normal. Mitral Valve There is no evidence of mitral valve prolapse. There is no vegetation seen on the mitral valve. There is no mitral valve stenosis. There is no mitral regurgitation noted. Aortic Valve There is no aortic valvular vegetation. There is mild aortic stenosis. There is a peak gradient of 20.37 mm of Hg. There is no LVOT obstruction. No aortic regurgitation is present. Tricuspid Valve There is no tricuspid stenosis. There is a trace amount of tricuspid regurgitation. There is mild pulmonary hypertension by echo. RVSP is 36 to 41 mm of Hg , with RA mean of 5 to 10. Pulmonic Valve There is no pulmonic valvular stenosis. There is no pulmonic valvular regurgitation. Great Vessels The aortic root is not well visualized but is probably normal size. The inferior vena cava appeared normal and decreased > 50% with respiration (RAP 5-10 mmHg). Effusions There is no pericardial effusion. : MAITE AMEZCUA > Carmen Ya
[2018-03-22] MEDS: ASPIRIN 325 MG TABLET, ENT COATED PO SCH (14:50)
--- NOTE | 2018-03-22 15:56 | PROGRESS NOTE E ---
Progress Note NAME: PAPI BEAULIEU : 1945 AGE: 72Y DATE: 03/22/2018 ROOM: 303 SUBJECTIVE: The patient is seen today early on rounds. Her son is present at the bedside, active in the patient's care. The patient has been seen by speech therapy. Family is [place] in [place]. No other concerns are voiced at this time. REVIEW OF SYSTEMS: The rest of the review of systems is unobtainable. MEDICATIONS: Medications have been reviewed. OBJECTIVE: GENERAL: The patient is a 72-year-old -Marshallese female who is awake, alert; unable to fully assess orientation. The patient does not appear to be distressed. VITAL SIGNS: Temperature 98.14, pulse 107, respirations 20, blood pressure 154/92, oxygen saturation 97% on room air. SKIN: Warm and dry. No rash. She is not diaphoretic. HEENT: Pupils are equal, round, and reactive to light and accommodation. Conjunctiva pink. No JVP. CVS: Patient is in sinus rhythm. CHEST: Symmetric, unlabored. ABDOMEN: Nondistended. EXTREMITIES: No edema. PSYCHIATRIC: The patient does have a flat affect and is not appropriately responding to commands. DIAGNOSTICS: Lab values are as follows: Hematology done 03/22/2018: WBC 8.8, hemoglobin 10.8, hematocrit 32.6, platelet count 280,000. Chemistry obtained on 03/22/2018: Sodium is 139, potassium 4.7, chloride 104, carbon dioxide 27, BUN 31, creatinine 1.02, glucose 99, calcium 7.8, triglycerides 87, cholesterol 55.31, LDL is less than 30, DLDL is 17, HDL is 27. ASSESSMENT AND PLAN: 1. Acute left arterial ischemic stroke in the anterior cerebral artery. Currently awaiting evaluation from all therapies. The patient has had bilateral lacunar infarctions in the past as well. Continue aspirin statin therapy. At this time, the patient's carotids are unremarkable and echocardiogram reveals a normal EF with moderate diastolic dysfunction. 2. Morbid obesity with a BMI of 45. We will encourage appropriate weight reduction. 3. Dyslipidemia. The patient will continue on a high dose of statin. 4. Hypertension. The patient's blood pressures have been in an acceptable range for permissive hypertension. DISPOSITION: The patient is a FULL CODE. Depending on the patient's symptomatology and diagnostic findings, will reevaluate in the a.m. Time spent on this followup including assessment, plan, physical examination, patient education, review of records, and family meeting is 25 minutes. DICTATING PHYSICIAN: AIMEE CHANG NP [id number] PHY#: [id number] ID: [id number] JOB#: [id number] ACCT: [id number] cc: >
[2018-03-22] MEDS: ATORVASTATIN CALCIUM 80 MG TABLET PO SCH (21:41)
[2018-03-23 04:57] LABS: ABSOLUTE BASOPHILS # (AUTO) 0.1 10^3/uL (0.0-0.2); ABSOLUTE EOSINOPHILS # (AUTO) 0.4 10^3/uL (0.0-0.6); ABSOLUTE LYMPHOCYTES (AUTO) 1.4 10^3/uL (0.5-4.7); ABSOLUTE MONOCYTES (AUTO) 0.7 10^3/uL (0.1-1.4); ABSOLUTE NEUT (AUTO) 5.2 10^3/uL (1.7-8.2); BASOPHILS % (AUTO) 0.7 % (0-2); EOSINOPHILS % (AUTO) 4.9 % (0-6); HEMATOCRIT 34.6 % (36.0-47.0); HEMOGLOBIN 11.1 g/dL (12.0-15.5); LYMPHOCYTES % (AUTO) 18.6 % (13-45); MEAN CORPUSCULAR HGB CONC 32.1 g/dL (32.0-36.0); MEAN CORPUSCULAR VOLUME 84 fl (80-97); MONOCYTES % (AUTO) 8.8 % (3-13); PLATELET COUNT 309 10^3/uL (150-450); RED BLOOD COUNT 4.11 10^6/uL (3.72-5.28); RED CELL DISTRIBUTION WIDTH 15.6 % (11.5-14.0); TOTAL CELLS COUNTED % (AUTO) 100 %; WHITE BLOOD COUNT 7.8 10^3/uL (4.0-10.5)
[2018-03-23 05:25] LABS: ANION GAP 6 (5-19); BLOOD UREA NITROGEN 24 mg/dL (7-20); CALCIUM 8.1 mg/dL (8.4-10.2); CARBON DIOXIDE 29 mmol/L (22-30); CHLORIDE 104 mmol/L (98-107); GLUCOSE 97 mg/dL (75-110); POTASSIUM 4.8 mmol/L (3.6-5.0); SODIUM 139.1 mmol/L (137-145)
[2018-03-23] MEDS: HEPARIN SOD (PORCINE) 5,000 UNIT/ML 1 ML SYRINGE SUBCUT SCH ×3 (05:50→21:07)
[2018-03-23] MEDS: ASPIRIN 325 MG TABLET, ENT COATED PO SCH (10:09)
[2018-03-23] MEDS: DOCUSATE SODIUM 100 MG CAPSULE PO SCH ×2 (10:09→18:40)
[2018-03-23] MEDS: SILVER SULFADIAZINE 1% CREAM 400 GM TP SCH ×4 (10:15→21:08)
[2018-03-23] MEDS: KETOROLAC TROMETHAMINE INJ/PF 30 MG/1 ML SDV IV PRN ×2 (13:24→21:06)
[2018-03-23] MEDS: ACETAMINOPHEN 325 MG TABLET PO PRN (14:53)
--- NOTE | 2018-03-23 17:02 | PROGRESS NOTE E ---
Progress Note NAME: PAPI BEAULIEU : 1945 AGE: 72Y DATE: 03/23/2018 ROOM: 303 SUBJECTIVE: The patient is lying in bed. The patient was able to answer yes or no, which is better than yesterday. The patient smiles appropriately. No report of emesis or vomiting, no diarrhea. The patient has been afebrile. Blood pressure has been somewhat elevated and in acceptable range and the patient does not voice any specific concerns at this time. REVIEW OF SYSTEMS: The rest of review of systems is unobtainable. MEDICATIONS: Have been reviewed. OBJECTIVE: GENERAL: The patient is a 72-year-old -Greek female who is awake, alert, unable to fully assess orientation. She does not appear to be distressed. VITAL SIGNS: Temperature is 98.7, pulse 90, respirations 18, blood pressure is 150/90, oxygen saturation is 96% on room air. SKIN: Warm and dry. No rash. She is not diaphoretic. The patient does have a very large stage II from her gluteal fold down her thigh, please see nursing documentation for details. HEENT: Pupils are reactive. Mucous membranes are moist. CARDIOVASCULAR: Heart is regular, no rub. CHEST: Clear, symmetrical, unlabored. ABDOMEN: Obese, soft, nontender. EXTREMITIES: Without clubbing, cyanosis, edema. PSYCHIATRIC: The patient seems pleasant. DIAGNOSTICS: Lab values are as follows - Hematology obtained on 03/23/2018; WBC are 7.8, hemoglobin is 11.1, hematocrit is 34.6, platelet count is 309,000. Chemistry obtained on 03/23/2018; sodium is 139, potassium 4.8, chloride is 104, carbon dioxide 29, BUN 24, creatinine is 0.90, glucose 97, calcium is 8.1. IMPRESSION AND PLAN: 1. ACUTE LEFT ARTERIAL ISCHEMIC STROKE IN THE ANTERIOR CEREBRAL ARTERY. The patient is awaiting placement at a facility in [place]. She has had history of bilateral lacunar infarcts as well. Continue aspirin and statin therapy. Carotids are unremarkable. 2. DIASTOLIC DYSFUNCTION. The patient appears euvolemic at this point. 3. MORBID OBESITY WITH A BMI OF 45. The patient will be encouraged for weight reduction. 4. DYSLIPIDEMIA. Continue statin. 5. HYPERTENSION. Blood pressure medications. She has been allowed permissive hypertension, will resume her home meds now. CODE STATUS: The patient is a full code. DISPOSITION: Depending on the patient's symptomatology and diagnostic findings will reevaluate in the a.m. TIME SPENT: On this follow up, including assessment and plan, physical examination, patient education, review of records is 25 minutes. DICTATING PHYSICIAN: AIMEE CHANG NP [id number] PHY#: [id number] ID: [id number] JOB#: [id number] ACCT: [id number] cc: >
[2018-03-23] MEDS: MORPHINE SULFATE 10 MG/ML INJ IV PRN (18:40)
[2018-03-23] MEDS: ATORVASTATIN CALCIUM 80 MG TABLET PO SCH (21:07)
[2018-03-24] MEDS: HEPARIN SOD (PORCINE) 5,000 UNIT/ML 1 ML SYRINGE SUBCUT SCH ×3 (05:59→21:48)
[2018-03-24] MEDS ORDERED: ONDANSETRON HCL INJ/PF 4 MG/2 ML SDV ONE ×2 (08:33→13:36)
[2018-03-24] MEDS: KETOROLAC TROMETHAMINE INJ/PF 30 MG/1 ML SDV IV PRN ×2 (08:55→14:55)
[2018-03-24] MEDS: DOCUSATE SODIUM 100 MG CAPSULE PO SCH ×2 (09:18→17:31)
[2018-03-24] MEDS: ASPIRIN 325 MG TABLET, ENT COATED PO SCH (09:18)
[2018-03-24] MEDS: SILVER SULFADIAZINE 1% CREAM 400 GM TP SCH ×2 (09:19→17:31)
[2018-03-24] MEDS: HYDRALAZINE HCL INJ/PF 20 MG/1 ML SDV IV PRN (09:33)
[2018-03-24] MEDS: ACETAMINOPHEN 325 MG TABLET PO PRN (11:37)
--- NOTE | 2018-03-24 14:27 | RADIOLOGY REPORT (SQ) ---
EXAM DESCRIPTION: CT HEAD WITHOUT COMPLETED DATE/TIME: 03/24/2018 2:07 pm REASON FOR STUDY: post CVA, ?bleed COMPARISON: MR 03/21/2018 CT 03/20/2018 TECHNIQUE: Axial images acquired through the brain without intravenous contrast. Images reviewed wi th bone, brain and subdural windows. Additional sagittal and coronal reconstructions were generated. Images stored on PACS. All CT scanners at this facility use dose modulation, iterative reconstruction, and/or weight based d osing when appropriate to reduce radiation dose to as low as reasonably achievable (ALARA). [facility]: Dose Right [facility]: CareDose [facility]: Dose Right [facility]: Teradose 4D [facility]: Smart Technologies RADIATION DOSE: CT Rad equipment meets quality standard of care and radiation dose reduction techniq ues were employed. CTDIvol: 48.5 mGy. DLP: 855 mGy-cm. mGy. LIMITATIONS: None. FINDINGS: VENTRICLES: Normal size and contour. CEREBRUM: There is ill-defined decreasing attenuation and a medial aspect of the left parietal lobe w here an acute infarction was demonstrated on the MRI of March 21. There is no hemorrhage. Areas o f low density in the white matter most likely chronic small vessel ischemic changes. CEREBELLUM: No masses. No hemorrhage. No alteration of density. No evidence for acute infarction. EXTRAAXIAL SPACES: No fluid collections. No masses. ORBITS AND GLOBE: No intra- or extraconal masses. Normal contour of globe without masses. CALVARIUM: No fracture. PARANASAL SINUSES: No fluid or mucosal thickening. SOFT TISSUES: No mass or hematoma. OTHER: No other significant finding. IMPRESSION: Mild progression of the left parietal infarction. No evidence of hemorrhagic conversion . EVIDENCE OF ACUTE STROKE: NO. COMMENT: Quality ID # [id number]: Final reports with documentation of one or more dose reduction techniques (e.g., Automated exposure control, adjustment of the mA and/or kV according to patient size, use of iterative reconstruction technique) TECHNICAL DOCUMENTATION: JOB ID: [id number] [employer]- All Rights Reserved Reading location - IP/workstation name: [email or web address]
--- NOTE | 2018-03-24 15:52 | PROGRESS NOTE E ---
Progress Note NAME: PAPI BEAULIEU : 1945 AGE: 72Y DATE: 03/24/2018 ROOM: 303 SUBJECTIVE: The patient was seen twice today on rounds. The patient will say yes but I cannot get any other words out of her. The patient vomited twice with her meals; therefore, I ordered a STAT head CT and findings were consistent with expanding stroke. Did discuss this with the son, who is the patient's only child, who discussed this with his aunt and they elected to proceed with DO NOT RESUSCITATE measures. They would like to premedicate the patient for dinner and see how she does with that and then proceed to the next evaluation tomorrow. The patient has been afebrile, her blood pressure has been in a good range, and the patient does not voice any other specific concerns at this time as she is unable. REVIEW OF SYSTEMS: Unobtainable. MEDICATIONS: Reviewed. OBJECTIVE: GENERAL: The patient is a 72-year-old -Gibraltarian female who is awake, alert, and oriented to person, place, time, and situation. She is verbal, conversational, does not appear to be in any acute distress. VITAL SIGNS: As follows: Temperature is 98.8, pulse 102, respirations 18, blood pressure is 160/107, oxygen saturation is 97% on room air. SKIN: Warm and dry. No rash, not diaphoretic. HEENT: Pupils equal, round, and reactive to light and accommodation. Conjunctivae pink. There is no evidence of JVP. CARDIOVASCULAR: Heart is regular. No rub. CHEST: Clear, symmetrical. ABDOMEN: Obese, soft. EXTREMITIES: No edema. PSYCHIATRIC: The patient does have a flat affect. DIAGNOSTICS: Lab values are as follows. Hematology obtained on 03/23/2018: WBCs are 7.8, hemoglobin is 11.7, hematocrit is 34.6, platelet count is 309,000. Chemistry obtained on 03/23/2018: Sodium is 139, potassium 4.8, chloride is 104, carbon dioxide 29, BUN 24, creatinine 0.90, glucose 97, calcium is 8.1. IMPRESSION AND PLAN: 1. ACUTE LEFT ARTERIAL ISCHEMIC STROKE OF THE ANTERIOR CEREBRAL ARTERY. This does appear to be expanding. The patient is awaiting placement in a rehab facility in [place]. Do not have a bed offer yet. 2. CEREBROVASCULAR DISEASE. The patient has evidence of previous bilateral lacunar infarctions as well. She is on aspirin and statin therapy. Carotids are unremarkable. 3. DIASTOLIC DYSFUNCTION. The patient appears to be euvolemic at this point. 4. MORBID OBESITY WITH A BMI OF 45. This appears to be the least of the patient's problems at this time. 5. DYSLIPIDEMIA. Continue statin. 6. HYPERTENSION. Blood pressures have been somewhat labile, most likely due to her infarctions. DISPOSITION: The patient is a DO NOT RESUSCITATE/DO NOT INTUBATE as the patient's son, who is the patient's next of kin, in conjunction with other family members, elected to proceed with a DO NOT RESUSCITATE/DO NOT INTUBATE status. Time spent on this followup, including assessment/plan, physical examination, patient education, review of records, and 2 family meetings, is 35 minutes. DICTATING PHYSICIAN: AIMEE CHANG NP [id number] PHY#: [id number] ID: [id number] JOB#: [id number] ACCT: [id number] cc: >
[2018-03-24] MEDS: ONDANSETRON HCL INJ/PF 4 MG/2 ML SDV IV PRN (17:31)
[2018-03-24] MEDS: ATORVASTATIN CALCIUM 80 MG TABLET PO SCH (21:49)
[2018-03-25] MEDS: HEPARIN SOD (PORCINE) 5,000 UNIT/ML 1 ML SYRINGE SUBCUT SCH ×3 (05:40→21:41)
[2018-03-25 05:54] LABS: HEMATOCRIT 34.4 % (36.0-47.0); MEAN CORPUSCULAR VOLUME 85 fl (80-97); PLATELET COUNT 294 10^3/uL (150-450); RED BLOOD COUNT 4.07 10^6/uL (3.72-5.28); RED CELL DISTRIBUTION WIDTH 15.8 % (11.5-14.0); WHITE BLOOD COUNT 10.1 10^3/uL (4.0-10.5)
[2018-03-25 06:27] LABS: ANION GAP 9 (5-19); BLOOD UREA NITROGEN 22 mg/dL (7-20); CALCIUM 8.1 mg/dL (8.4-10.2); CARBON DIOXIDE 27 mmol/L (22-30); CHLORIDE 104 mmol/L (98-107); GLUCOSE 96 mg/dL (75-110); POTASSIUM 4.7 mmol/L (3.6-5.0); SODIUM 139.8 mmol/L (137-145)
[2018-03-25] MEDS: ONDANSETRON HCL INJ/PF 4 MG/2 ML SDV IV PRN ×2 (08:25→21:41)
[2018-03-25] MEDS: SILVER SULFADIAZINE 1% CREAM 400 GM TP SCH (10:39)
[2018-03-25] MEDS: ASPIRIN 325 MG TABLET, ENT COATED PO SCH (10:39)
[2018-03-25] MEDS: DOCUSATE SODIUM 100 MG CAPSULE PO SCH ×2 (10:39→17:58)
[2018-03-25] MEDS: ONDANSETRON 4 MG TAB.RAPDIS PO SCH ×2 (10:40→16:37)
--- NOTE | 2018-03-25 16:21 | PROGRESS NOTE E ---
Progress Note NAME: PAPI BEAULIEU : 1945 AGE: 72Y DATE: 03/25/2018 ROOM: 303 SUBJECTIVE: The patient is currently lying in bed. She does answer yes or no today and tries to say good morning. This appears to be an improvement. Nausea has improved with premedication prior to meals with Zofran. Have discussed this in detail with the patient's son. He is agreeable to DNR measures and awaiting placement in [place]. BRIEF HISTORY: The patient is a 72-year-old -Mosotho female that presented to the emergency department after having a stroke. The patient stabilized for days; however, she developed significant vomiting. The patient was imaged and was found to have expansion of her CVA. Family meeting was held with the patient's son who is her decision maker and he has elected to proceed with a DO NOT RESUSCITATE STATUS. He would like to continue to try to feed the patient if possible and is looking for placement in the [place] area. REVIEW OF SYSTEMS: The rest of the review of systems is unobtainable. MEDICATIONS: Medications have been reviewed. OBJECTIVE: GENERAL: The patient is a 72-year-old -Mosotho female who is awake, alert, unable to fully assess orientation. She does not appear to be in any acute distress. VITAL SIGNS: As follows: Temperature is 98.0, pulse 102, respirations 21, blood pressure 155/87, oxygen saturation is 98% on room air. SKIN: Warm and dry. No rash, not diaphoretic. HEENT: Pupils equal, round, and reactive to light and accommodation. Conjunctivae pink. No evidence of JVP. CARDIOVASCULAR: Heart is regular. There is no murmur or rub. CHEST: Clear, symmetrical, unlabored. ABDOMEN: Soft, nontender, nondistended. BACK: No CVA tenderness or sacral edema. EXTREMITIES: No clubbing, cyanosis, edema. PSYCHIATRIC: Appropriate affect. DIAGNOSTICS: Lab values are as follows. Hematology obtained on 03/25/2018: WBCs are 10.0, hemoglobin is 11.0, hematocrit is 34.4, platelet count is 294,000. Chemistry obtained on 03/25/2018: Sodium is 139, potassium 4.7, chloride 104, carbon dioxide 27, BUN 22, creatinine 0.93, glucose 96, calcium 8.1, magnesium 2.2. IMPRESSION AND PLAN: 1. ACUTE LEFT ISCHEMIC STROKE OF THE ANTERIOR CEREBELLAR ARTERY, DID APPEAR TO BE EXPANDING ON REPEAT CT. The patient's symptoms overall are labile. The patient is awaiting placement in [place]. 2. CEREBROVASCULAR DISEASE. The patient has evidence of previous bilateral lacunar infarctions. Will continue to encourage aspirin and statin therapy. Carotids were unremarkable. 3. DIASTOLIC DYSFUNCTION. The patient has no evidence of failure. 4. MORBID OBESITY WITH A BMI OF 45. 5. DYSLIPIDEMIA. Continue statin. 6. HYPERTENSION. The patient's blood pressure is somewhat labile, most likely due to her infarctions. DISPOSITION: THE PATIENT IS A DO NOT RESUSCITATE/DO NOT INTUBATE. Pending the patient's symptomatology and diagnostic findings, will re-evaluate as needed. The patient can be downgraded to a medical bed. Time spent on this followup, including assessment/plan, physical examination, patient education, review of records, is 25 minutes. DICTATING PHYSICIAN: AIMEE CHANG NP [id number] PHY#: [id number] ID: [id number] JOB#: [id number] ACCT: [id number] cc: >
[2018-03-25] MEDS: ATORVASTATIN CALCIUM 80 MG TABLET PO SCH (21:41)
[2018-03-26] MEDS: SILVER SULFADIAZINE 1% CREAM 400 GM TP SCH ×3 (02:19→21:19)
[2018-03-26 05:14] LABS: HEMATOCRIT 34.9 % (36.0-47.0); HEMOGLOBIN 11.2 g/dL (12.0-15.5); MEAN CORPUSCULAR HEMOGLOBIN 27.3 pg (27.0-33.4); MEAN CORPUSCULAR HGB CONC 32.1 g/dL (32.0-36.0); MEAN CORPUSCULAR VOLUME 85 fl (80-97); PLATELET COUNT 318 10^3/uL (150-450); RED CELL DISTRIBUTION WIDTH 15.9 % (11.5-14.0)
[2018-03-26 05:36] LABS: ANION GAP 6 (5-19); BLOOD UREA NITROGEN 19 mg/dL (7-20); CALCIUM 8.4 mg/dL (8.4-10.2); CARBON DIOXIDE 30 mmol/L (22-30); CHLORIDE 105 mmol/L (98-107); GLUCOSE 100 mg/dL (75-110); POTASSIUM 4.7 mmol/L (3.6-5.0)
[2018-03-26] MEDS: HEPARIN SOD (PORCINE) 5,000 UNIT/ML 1 ML SYRINGE SUBCUT SCH ×3 (06:01→21:17)
[2018-03-26] MEDS: DOCUSATE SODIUM 100 MG CAPSULE PO SCH ×2 (09:40→17:38)
[2018-03-26] MEDS: ONDANSETRON 4 MG TAB.RAPDIS PO SCH ×3 (09:40→15:29)
[2018-03-26] MEDS: ASPIRIN 325 MG TABLET, ENT COATED PO SCH (09:40)
--- NOTE | 2018-03-26 15:59 | RADIOLOGY REPORT (SQ) ---
EXAM DESCRIPTION: VENOUS UNILATERAL LOWER COMPLETED DATE/TIME: 03/26/2018 3:06 pm REASON FOR STUDY: right leg edema COMPARISON: None. TECHNIQUE: Dynamic and static vallejo scale and color images acquired of the right leg venous system. S elected spectral images acquired with additional compression and augmentation maneuvers. The contrala teral common femoral vein and saphenofemoral junction were also imaged. Images stored on PACS. LIMITATIONS: None. FINDINGS: COMMON FEMORAL: Normal phasicity, compression and augmentation. No visualized echogenic ma terial on vallejo scale. No defects on color images. FEMORAL: Normal compression and augmentation. No visualized echogenic material on vallejo scale. No defe cts on color images. POPLITEAL: Normal compression, augmentation. No visualized echogenic material on vallejo scale. No defec ts on color images. CALF VESSELS: Normal compression, augmentation. No visualized echogenic material on vallejo scale. No de fects on color images. GSV and SSV: Normal compression, augmentation. No visualized echogenic material on vallejo scale. No def ects on color images. ANY DEEP VENOUS INSUFFICIENCY: Not evaluated. ANY EVIDENCE OF POPLITEAL CYST: No. OTHER: No other significant finding. CONTRALATERAL COMMON FEMORAL VEIN AND SAPHENOFEMORAL JUNCTION: Normal phasicity, compression and augmentation. No visualized echogenic material on vallejo scale. No de fects on color images. IMPRESSION: NO EVIDENCE DVT OR SVT IN THE RIGHT LEG. TECHNICAL DOCUMENTATION: JOB ID: [id number] [employer]- All Rights Reserved Reading location - IP/workstation name: [email or web address]
--- NOTE | 2018-03-26 16:00 | RADIOLOGY REPORT (SQ) ---
EXAM DESCRIPTION: VENOUS UNILATERAL UPPER COMPLETED DATE/TIME: 03/26/2018 3:06 pm REASON FOR STUDY: right arm edema COMPARISON: None. TECHNIQUE: Dynamic and static vallejo scale and color images acquired of the right arm venous system. S elected spectral images acquired with additional compression and augmentation maneuvers. The contrala teral subclavian vein and internal jugular vein were also imaged. Images stored on PACS. LIMITATIONS: None. FINDINGS: INTERNAL JUGULAR VEIN: Normal phasicity, compression, augmentation. No visualized echogeni c material on vallejo scale. No defects on color images. Comparison opposite side normal. SUBCLAVIAN VEIN: Normal compression, augmentation. No visualized echogenic material on vallejo scale. No defects on color images. AXILLARY VEIN: Normal compression, augmentation. No visualized echogenic material on vallejo scale. No d efects on color images. BRACHIAL VEIN: Normal compression, augmentation. No visualized echogenic material on vallejo scale. No d efects on color images. BASILIC VEIN: Normal compression, augmentation. No visualized echogenic material on vallejo scale. No de fects on color images. CEPHALIC VEIN: Normal compression, augmentation. No visualized echogenic material on vallejo scale. No d efects on color images. OTHER: No other significant finding. CONTRALATERAL SUBCLAVIAN VEIN AND INTERNAL JUGULAR VEIN: Not imaged IMPRESSION: NO EVIDENCE DVT OR SVT IN THE RIGHT ARM. TECHNICAL DOCUMENTATION: JOB ID: [id number] [employer]- All Rights Reserved Reading location - IP/workstation name: [email or web address]
--- NOTE | 2018-03-26 18:02 | PDOC PROGRESS REPORT ---
Subjective Progress Note for:: 03/26/18 Subjective:: No adverse events overnight. No new complaints. She has had no substantial change in her condition. She is awaiting transfer to a facility in [place]. Her blood pressures have been elevated but stable. She apparently had an extension of her stroke within the last couple of days. Reason For Visit: HYPERKALEMIA, INTRACTABLE PAIN FALLS Physical Exam Vital Signs: Temp Pulse Resp BP Pulse Ox 97.6 F 102 H 17 153/99 H 94 03/26/18 15:49 03/26/18 15:49 03/26/18 15:49 03/26/18 15:49 03/26/18 15:49 Intake & Output 03/25/18 03/26/18 03/27/18 06:59 06:59 06:59 Intake Total 592 350 Output Total 1200 1800 Balance -608 -1450 Weight 136 kg 123.3 kg General appearance: PRESENT: no acute distress, disheveled, morbidly obese Respiratory exam: PRESENT: clear to auscultation santa, unlabored. ABSENT: rales , rhonchi, tachypnea, wheezes Cardiovascular exam: PRESENT: RRR, +S1, +S2 GI/Abdominal exam: PRESENT: normal bowel sounds, soft. ABSENT: distended, guarding, rebound, tenderness Extremities exam: PRESENT: +2 edema - Right upper extremity and right lower extremity Musculoskeletal exam: PRESENT: normal inspection. ABSENT: deformity Neurological exam: PRESENT: alert, awake, motor sensory deficit - Right side is flaccid in the upper and lower extremities, aphasic Results Laboratory Results: 03/26/18 04:51 03/26/18 04:51 03/26/18 03/26/18 04:51 04:51 WBC 9.0 RBC 4.10 Hgb 11.2 L Hct 34.9 L MCV 85 MCH 27.3 MCHC 32.1 RDW 15.9 H Plt Count 318 Sodium 141.0 Potassium 4.7 Chloride 105 Carbon Dioxide 30 Anion Gap 6 BUN 19 Creatinine 0.92 Est GFR ( Amer) > 60 Est GFR (Non-Af Amer) > 60 Glucose 100 Calcium 8.4 Magnesium 2.2 03/20/18 03/20/18 03/21/18 23:25 23:25 05:32 Creatine Kinase 2185 H 1567 H CK-MB (CK-2) 2.55 Troponin I 0.031 03/21/18 03/21/18 03/21/18 05:32 11:33 11:33 Creatine Kinase 1211 H CK-MB (CK-2) 1.84 1.47 Troponin I 0.032 0.034 Impressions: Chest X-Ray 03/20/18 16:57 IMPRESSION: Borderline cardiomegaly with no pulmonary edema. Ectasia of the ascending aorta and tortuosity of the descending aorta. Femur X-Ray 03/20/18 19:22 IMPRESSION: Degenerative joint disease at the knee. No acute abnormality in the femur. Pelvis X-Ray 03/20/18 19:22 IMPRESSION: Lower lumbar degenerative changes. No acute abnormality in the pelvis. Carotid Doppler Study 03/21/18 00:00 IMPRESSION: NO HEMODYNAMICALLY SIGNIFICANT STENOSIS. Head MRI 03/21/18 05:34 IMPRESSION: Acute nonhemorrhagic infarct left parasagittal frontal lobe and anterior cerebral artery distribution Moderate chronic small vessel ischemic change in the hemispheric white matter with old bilateral thalamic lacunar infarcts EVIDENCE OF ACUTE STROKE: Yes. Head CT 03/24/18 00:00 IMPRESSION: Mild progression of the left parietal infarction. No evidence of hemorrhagic conversion. EVIDENCE OF ACUTE STROKE: NO. Venous Doppler Study 03/26/18 00:00 IMPRESSION: NO EVIDENCE DVT OR SVT IN THE RIGHT ARM. Assessment & Plan - Diagnosis (1) Acute left arterial ischemic stroke, GERSON (anterior cerebral artery) Is this a current diagnosis for this admission?: Yes Plan: Continue aspirin and statin. Blood pressure still a bit labile, but efforts to bring it down at this time are still done with a bit of caution due to fear of triggering another extension of her stroke. The plan is still to send her to a facility in [place] for rehab attempt once a bed is available. (2) Decubital ulcer Qualifiers: Pressure injury location: thigh Pressure injury stage: stage 2 Laterality : right Qualified Code(s): L89.212 - Pressure ulcer of right hip, stage 2 Is this a current diagnosis for this admission?: Yes Plan: Continue local wound care along with pressure offloading. - Time Time Spent with patient: 25-34 minutes
[2018-03-26] MEDS: ATORVASTATIN CALCIUM 80 MG TABLET PO SCH (21:17)
[2018-03-27] MEDS: HEPARIN SOD (PORCINE) 5,000 UNIT/ML 1 ML SYRINGE SUBCUT SCH ×3 (05:49→22:21)
[2018-03-27] MEDS: ONDANSETRON 4 MG TAB.RAPDIS PO SCH ×3 (08:36→16:21)
[2018-03-27] MEDS: ASPIRIN 325 MG TABLET, ENT COATED PO SCH ×2 (10:17→10:25)
[2018-03-27] MEDS: DOCUSATE SODIUM 100 MG CAPSULE PO SCH ×2 (10:17→10:25)
[2018-03-27] MEDS: ASPIRIN 81 MG TABLET, CHEWABLE PO SCH (12:01)
[2018-03-27] MEDS: DOCUSATE SODIUM 100 MG/10 ML UDC PO SCH ×2 (12:01→17:17)
[2018-03-27] MEDS: SILVER SULFADIAZINE 1% CREAM 400 GM TP SCH (12:01)
[2018-03-27] MEDS: HYDRALAZINE HCL INJ/PF 20 MG/1 ML SDV IV PRN (17:17)
--- NOTE | 2018-03-27 19:27 | PDOC PROGRESS REPORT ---
Subjective Progress Note for:: 03/27/18 Subjective:: No acute events overnight. Patient still aphasic follows minimal commands. Denies any fever, chills, nausea, vomiting or any constipation. She is still pending transfer to [facility]. Reason For Visit: HYPERKALEMIA, INTRACTABLE PAIN FALLS Physical Exam Vital Signs: Temp Pulse Resp BP Pulse Ox 98.7 F 97 20 171/95 H 97 03/27/18 16:00 03/27/18 16:00 03/27/18 16:00 03/27/18 16:00 03/27/18 16:00 Intake & Output 03/26/18 03/27/18 03/28/18 06:59 06:59 06:59 Intake Total 350 230 Output Total 1800 1375 Balance -1450 -1145 Weight 123.3 kg 133.7 kg General appearance: PRESENT: no acute distress Respiratory exam: PRESENT: clear to auscultation santa. ABSENT: rales, rhonchi, wheezes Cardiovascular exam: PRESENT: RRR. ABSENT: diastolic murmur, rubs, systolic murmur GI/Abdominal exam: PRESENT: normal bowel sounds, soft. ABSENT: distended, guarding, mass, organolmegaly, rebound, tenderness Musculoskeletal exam: PRESENT: other - Right upper posterior thigh and buttock region stage I/II ulcer about 5 x 5 cm. Clean dressing and clean wound no sign of active discharge or infection. Neurological exam: PRESENT: awake, oriented to person, oriented to time, aphasic , other - Right upper and lower extremity 1/5 Results Laboratory Results: 03/26/18 04:51 03/26/18 04:51 03/20/18 03/20/18 03/21/18 23:25 23:25 05:32 Creatine Kinase 2185 H 1567 H CK-MB (CK-2) 2.55 Troponin I 0.031 03/21/18 03/21/18 03/21/18 05:32 11:33 11:33 Creatine Kinase 1211 H CK-MB (CK-2) 1.84 1.47 Troponin I 0.032 0.034 Impressions: Chest X-Ray 03/20/18 16:57 IMPRESSION: Borderline cardiomegaly with no pulmonary edema. Ectasia of the ascending aorta and tortuosity of the descending aorta. Femur X-Ray 03/20/18 19:22 IMPRESSION: Degenerative joint disease at the knee. No acute abnormality in the femur. Pelvis X-Ray 03/20/18 19:22 IMPRESSION: Lower lumbar degenerative changes. No acute abnormality in the pelvis. Carotid Doppler Study 03/21/18 00:00 IMPRESSION: NO HEMODYNAMICALLY SIGNIFICANT STENOSIS. Head MRI 03/21/18 05:34 IMPRESSION: Acute nonhemorrhagic infarct left parasagittal frontal lobe and anterior cerebral artery distribution Moderate chronic small vessel ischemic change in the hemispheric white matter with old bilateral thalamic lacunar infarcts EVIDENCE OF ACUTE STROKE: Yes. Head CT 03/24/18 00:00 IMPRESSION: Mild progression of the left parietal infarction. No evidence of hemorrhagic conversion. EVIDENCE OF ACUTE STROKE: NO. Venous Doppler Study 03/26/18 00:00 IMPRESSION: NO EVIDENCE DVT OR SVT IN THE RIGHT ARM. Assessment & Plan - Diagnosis (1) Acute left arterial ischemic stroke, GERSON (anterior cerebral artery) Is this a current diagnosis for this admission?: Yes Plan: Continue antiplatelets and statins. Continue PT OT ST. Pending transfer to [place] for rehab. (3) Decubital ulcer Qualifiers: Pressure injury location: thigh Pressure injury stage: stage 2 Laterality : right Qualified Code(s): L89.212 - Pressure ulcer of right hip, stage 2 Is this a current diagnosis for this admission?: Yes Plan: Continue wound care, pressure offloading. (4) Hypertension Is this a current diagnosis for this admission?: No Plan: Not controlled. Will lower down cautiously to avoid triggering expansion of underlying stroke. Will start Coreg 6.25 twice daily. Monitor vitals. Adjust dose as needed.
[2018-03-27] MEDS: ATORVASTATIN CALCIUM 80 MG TABLET PO SCH (22:21)
[2018-03-27] MEDS: CARVEDILOL 6.25 MG TABLET PO SCH (22:21)
[2018-03-28] MEDS: ONDANSETRON HCL INJ/PF 4 MG/2 ML SDV IV PRN (04:09)
[2018-03-28] MEDS: SILVER SULFADIAZINE 1% CREAM 400 GM TP SCH ×3 (04:27→22:32)
[2018-03-28] MEDS: HEPARIN SOD (PORCINE) 5,000 UNIT/ML 1 ML SYRINGE SUBCUT SCH ×3 (06:28→22:31)
[2018-03-28] MEDS: ONDANSETRON 4 MG TAB.RAPDIS PO SCH ×3 (08:37→17:14)
[2018-03-28] MEDS: ASPIRIN 81 MG TABLET, CHEWABLE PO SCH (09:53)
[2018-03-28] MEDS: DOCUSATE SODIUM 100 MG/10 ML UDC PO SCH ×2 (09:53→17:39)
[2018-03-28] MEDS: CARVEDILOL 6.25 MG TABLET PO SCH ×2 (09:53→22:32)
--- NOTE | 2018-03-28 20:08 | PDOC PROGRESS REPORT ---
Subjective Progress Note for:: 03/28/18 Subjective:: No acute events overnight. Patient still aphasic follows minimal commands. Denies any fever, chills, nausea, vomiting or any constipation. She is still pending transfer to [facility]. Reason For Visit: HYPERKALEMIA, INTRACTABLE PAIN FALLS Physical Exam Vital Signs: Temp Pulse Resp BP Pulse Ox 97.3 F 95 20 149/85 H 97 03/28/18 16:00 03/28/18 16:00 03/28/18 16:00 03/28/18 16:00 03/28/18 16:00 Intake & Output 03/27/18 03/28/18 03/29/18 06:59 06:59 06:59 Intake Total 230 384 151 Output Total 1375 1710 500 Balance -1145 -1326 -349 Weight 133.7 kg 134 kg General appearance: PRESENT: no acute distress, well-developed, well-nourished Respiratory exam: PRESENT: clear to auscultation santa. ABSENT: rales, rhonchi, wheezes Cardiovascular exam: PRESENT: RRR. ABSENT: diastolic murmur, rubs, systolic murmur GI/Abdominal exam: PRESENT: normal bowel sounds, soft. ABSENT: distended, guarding, mass, organolmegaly, rebound, tenderness Musculoskeletal exam: PRESENT: other - Right upper posterior thigh and buttock region stage I/II ulcer about 5 x 5 cm. Clean dressing and clean wound no sign of active discharge or infection. Neurological exam: PRESENT: other - Neurologically unchanged. Results Laboratory Results: 03/26/18 04:51 03/26/18 04:51 03/20/18 03/20/18 03/21/18 23:25 23:25 05:32 Creatine Kinase 2185 H 1567 H CK-MB (CK-2) 2.55 Troponin I 0.031 03/21/18 03/21/18 03/21/18 05:32 11:33 11:33 Creatine Kinase 1211 H CK-MB (CK-2) 1.84 1.47 Troponin I 0.032 0.034 Impressions: Chest X-Ray 03/20/18 16:57 IMPRESSION: Borderline cardiomegaly with no pulmonary edema. Ectasia of the ascending aorta and tortuosity of the descending aorta. Femur X-Ray 03/20/18 19:22 IMPRESSION: Degenerative joint disease at the knee. No acute abnormality in the femur. Pelvis X-Ray 03/20/18 19:22 IMPRESSION: Lower lumbar degenerative changes. No acute abnormality in the pelvis. Carotid Doppler Study 03/21/18 00:00 IMPRESSION: NO HEMODYNAMICALLY SIGNIFICANT STENOSIS. Head MRI 03/21/18 05:34 IMPRESSION: Acute nonhemorrhagic infarct left parasagittal frontal lobe and anterior cerebral artery distribution Moderate chronic small vessel ischemic change in the hemispheric white matter with old bilateral thalamic lacunar infarcts EVIDENCE OF ACUTE STROKE: Yes. Head CT 03/24/18 00:00 IMPRESSION: Mild progression of the left parietal infarction. No evidence of hemorrhagic conversion. EVIDENCE OF ACUTE STROKE: NO. Venous Doppler Study 03/26/18 00:00 IMPRESSION: NO EVIDENCE DVT OR SVT IN THE RIGHT ARM. Assessment & Plan - Diagnosis (1) Acute left arterial ischemic stroke, GERSON (anterior cerebral artery) Is this a current diagnosis for this admission?: Yes Plan: Continue antiplatelets and statins. Continue PT OT ST. Pending transfer to [place] for rehab. (2) Dyslipidemia Is this a current diagnosis for this admission?: Yes Plan: Continue statins. (3) Decubital ulcer Qualifiers: Pressure injury location: thigh Pressure injury stage: stage 2 Laterality : right Qualified Code(s): L89.212 - Pressure ulcer of right hip, stage 2 Is this a current diagnosis for this admission?: Yes Plan: Continue wound care, pressure offloading. (4) Hypertension Is this a current diagnosis for this admission?: No Plan: Not controlled. Will lower down cautiously to avoid triggering expansion of underlying stroke. Will start Coreg 6.25 twice daily. Monitor vitals. Adjust dose as needed.
[2018-03-28] MEDS: ATORVASTATIN CALCIUM 80 MG TABLET PO SCH (22:32)
[2018-03-29] MEDS: ONDANSETRON HCL INJ/PF 4 MG/2 ML SDV IV PRN (03:24)
[2018-03-29] MEDS ORDERED: LACTULOSE SYRUP 20 GM/30 ML UDCUP PO ONE (03:50)
[2018-03-29] MEDS ORDERED: NA PHOS,M-B/NA PHOS,DI-BA (ADULT) 133 ML ENEMA PR ONE (03:50)
[2018-03-29] MEDS: HEPARIN SOD (PORCINE) 5,000 UNIT/ML 1 ML SYRINGE SUBCUT SCH ×2 (05:38→14:06)
[2018-03-29] MEDS ORDERED: CARVEDILOL 6.25 MG TABLET PO SCH (08:14)
[2018-03-29] MEDS: CARVEDILOL 12.5 MG TABLET PO SCH (09:00)
[2018-03-29] MEDS: ASPIRIN 81 MG TABLET, CHEWABLE PO SCH (09:00)
[2018-03-29] MEDS: ONDANSETRON 4 MG TAB.RAPDIS PO SCH ×3 (09:00→16:35)
[2018-03-29] MEDS: DOCUSATE SODIUM 100 MG/10 ML UDC PO SCH ×2 (09:00→17:39)
[2018-03-29] MEDS ORDERED: FUROSEMIDE INJ/PF 40 MG/4 ML SDV IV ONE (10:30)
[2018-03-29] MEDS: GUAIFENESIN SYRP 200 MG/10 ML UDC PO SCH ×3 (11:10→17:39)
[2018-03-29] MEDS: SILVER SULFADIAZINE 1% CREAM 400 GM TP SCH (11:11)
--- NOTE | 2018-03-29 12:12 | RADIOLOGY REPORT (SQ) ---
EXAM DESCRIPTION: CHEST SINGLE VIEW COMPLETED DATE/TIME: 03/29/2018 11:59 am REASON FOR STUDY: wheezing COMPARISON: AP chest 03/20/2018 EXAM PARAMETERS: NUMBER OF VIEWS: One view. TECHNIQUE: Single frontal radiographic view of the chest acquired. RADIATION DOSE: NA LIMITATIONS: Lordotic portable film, obese patient FINDINGS: LUNGS AND PLEURA: Early or developing right upper lobe infiltrate superimposed on the ante rior right 2nd and 3rd ribs. Remainder of the lungs are grossly clear. No pleural effusion. No pne umothorax. MEDIASTINUM AND HILAR STRUCTURES: No masses. Contour normal. HEART AND VASCULAR STRUCTURES: Stable moderate cardiomegaly and uncoiled tortuous thoracic aorta BONES: Osteoarthritis both shoulders with left-sided shoulder joint loose bodies HARDWARE: None in the chest. OTHER: No other significant finding. IMPRESSION: Early or developing right upper lobe infiltrate TECHNICAL DOCUMENTATION: JOB ID: [id number] [employer]- All Rights Reserved Reading location - IP/workstation name: [id number]
--- NOTE | 2018-03-29 14:02 | PDOC PROGRESS REPORT ---
Subjective Progress Note for:: 03/29/18 Subjective:: Patient had one episode of vomiting last night and she has been having productive cough since yesterday. Otherwise no acute events. Chest x-ray showed right upper lobe infiltrate likely due to chemical pneumonitis or aspiration pneumonia. [facility] was counseled for possible pneumonia. Will start on empiric antibiotics, sputum culture, blood culture and antitussives. On my encounter patient is resting comfortably in bed unfortunately cannot communicate very well due to her severe a aphasia. Seems to be in any acute distress. Reason For Visit: HYPERKALEMIA, INTRACTABLE PAIN FALLS Physical Exam Vital Signs: Temp Pulse Resp BP Pulse Ox 98.7 F 93 21 H 141/92 H 96 03/29/18 12:08 03/29/18 12:08 03/29/18 12:08 03/29/18 12:08 03/29/18 12:08 Intake & Output 03/28/18 03/29/18 03/30/18 06:59 06:59 06:59 Intake Total 384 351 Output Total 1710 875 Balance -1326 -524 Weight 134 kg 133.7 kg General appearance: PRESENT: no acute distress Head exam: PRESENT: atraumatic, normocephalic Respiratory exam: PRESENT: clear to auscultation santa. ABSENT: rales, rhonchi, wheezes Cardiovascular exam: PRESENT: RRR. ABSENT: diastolic murmur, rubs, systolic murmur GI/Abdominal exam: PRESENT: normal bowel sounds, soft. ABSENT: distended, guarding, mass, organolmegaly, rebound, tenderness Neurological exam: PRESENT: awake, CN II-XII grossly intact - Changed neurological status., aphasic Results Laboratory Results: 03/26/18 04:51 03/26/18 04:51 03/20/18 03/20/18 03/21/18 23:25 23:25 05:32 Creatine Kinase 2185 H 1567 H CK-MB (CK-2) 2.55 Troponin I 0.031 03/21/18 03/21/18 03/21/18 05:32 11:33 11:33 Creatine Kinase 1211 H CK-MB (CK-2) 1.84 1.47 Troponin I 0.032 0.034 Impressions: Femur X-Ray 03/20/18 19:22 IMPRESSION: Degenerative joint disease at the knee. No acute abnormality in the femur. Pelvis X-Ray 03/20/18 19:22 IMPRESSION: Lower lumbar degenerative changes. No acute abnormality in the pelvis. Carotid Doppler Study 03/21/18 00:00 IMPRESSION: NO HEMODYNAMICALLY SIGNIFICANT STENOSIS. Head MRI 03/21/18 05:34 IMPRESSION: Acute nonhemorrhagic infarct left parasagittal frontal lobe and anterior cerebral artery distribution Moderate chronic small vessel ischemic change in the hemispheric white matter with old bilateral thalamic lacunar infarcts EVIDENCE OF ACUTE STROKE: Yes. Head CT 03/24/18 00:00 IMPRESSION: Mild progression of the left parietal infarction. No evidence of hemorrhagic conversion. EVIDENCE OF ACUTE STROKE: NO. Venous Doppler Study 03/26/18 00:00 IMPRESSION: NO EVIDENCE DVT OR SVT IN THE RIGHT ARM. Chest X-Ray 03/29/18 00:00 IMPRESSION: Early or developing right upper lobe infiltrate Assessment & Plan - Diagnosis (1) Pneumonia Is this a current diagnosis for this admission?: Yes Plan: Aspiration versus chemical pneumonitis. Ceftriaxone and metronidazole IV. Sputum and blood culture. Antitussives. If patient has improvement of her symptoms and no leukocytosis and blood cultures are negative she could be transferred to [place] tomorrow. (2) Acute left arterial ischemic stroke, GERSON (anterior cerebral artery) Is this a current diagnosis for this admission?: Yes (3) Dyslipidemia Is this a current diagnosis for this admission?: Yes Plan: Continue statins. (4) Decubital ulcer Qualifiers: Pressure injury location: thigh Pressure injury stage: stage 2 Laterality : right Qualified Code(s): L89.212 - Pressure ulcer of right hip, stage 2 Is this a current diagnosis for this admission?: Yes Plan: Continue wound care, pressure offloading. (5) Hypertension Is this a current diagnosis for this admission?: No Plan: Not controlled. Will lower down cautiously to avoid triggering expansion of underlying stroke. Will start Coreg 6.25 twice daily. Monitor vitals. Adjust dose as needed.
[2018-03-29] MEDS: METRONIDAZOLE 500 MG/NS RTU 500 MG/100 ML RTUPB IV SCH (14:05)
[2018-03-30] MEDS: METRONIDAZOLE 500 MG/NS RTU 500 MG/100 ML RTUPB IV SCH ×4 (00:27→21:58)
[2018-03-30] MEDS: HEPARIN SOD (PORCINE) 5,000 UNIT/ML 1 ML SYRINGE SUBCUT SCH ×4 (00:27→21:58)
[2018-03-30] MEDS: GUAIFENESIN SYRP 200 MG/10 ML UDC PO SCH ×7 (00:27→21:58)
[2018-03-30] MEDS: ATORVASTATIN CALCIUM 80 MG TABLET PO SCH ×2 (00:28→21:57)
[2018-03-30] MEDS: CARVEDILOL 12.5 MG TABLET PO SCH ×3 (00:28→21:57)
[2018-03-30] MEDS: ONDANSETRON HCL INJ/PF 4 MG/2 ML SDV IV PRN (00:30)
[2018-03-30] MEDS: SILVER SULFADIAZINE 1% CREAM 400 GM TP SCH ×3 (06:15→22:01)
[2018-03-30 06:30] LABS: ABSOLUTE BASOPHILS # (AUTO) 0.1 10^3/uL (0.0-0.2); ABSOLUTE EOSINOPHILS # (AUTO) 0.3 10^3/uL (0.0-0.6); ABSOLUTE LYMPHOCYTES (AUTO) 1.4 10^3/uL (0.5-4.7); ABSOLUTE MONOCYTES (AUTO) 0.8 10^3/uL (0.1-1.4); ABSOLUTE NEUT (AUTO) 6.7 10^3/uL (1.7-8.2); EOSINOPHILS % (AUTO) 3.5 % (0-6); HEMATOCRIT 35.3 % (36.0-47.0); HEMOGLOBIN 11.2 g/dL (12.0-15.5); LYMPHOCYTES % (AUTO) 14.8 % (13-45); MEAN CORPUSCULAR HEMOGLOBIN 26.8 pg (27.0-33.4); MEAN CORPUSCULAR HGB CONC 31.6 g/dL (32.0-36.0); MEAN CORPUSCULAR VOLUME 85 fl (80-97); MONOCYTES % (AUTO) 8.6 % (3-13); PLATELET COUNT 339 10^3/uL (150-450); RED BLOOD COUNT 4.17 10^6/uL (3.72-5.28); RED CELL DISTRIBUTION WIDTH 16.1 % (11.5-14.0); SEGMENTED NEUTROPHILS % (AUTO) 72.1 % (42-78); TOTAL CELLS COUNTED % (AUTO) 100 %; WHITE BLOOD COUNT 9.2 10^3/uL (4.0-10.5)
[2018-03-30 06:56] LABS: ALANINE AMINOTRANSFERASE 36 U/L (9-52); ALBUMIN 2.7 g/dL (3.5-5.0); ALKALINE PHOSPHATASE 74 U/L (38-126); ANION GAP 10 (5-19); ASPARTATE AMINO TRANSFERASE 33 U/L (14-36); BILIRUBIN,DIRECT 0.2 mg/dL (0.0-0.4); BILIRUBIN,TOTAL 0.6 mg/dL (0.2-1.3); BLOOD UREA NITROGEN 26 mg/dL (7-20); CALCIUM 8.4 mg/dL (8.4-10.2); CARBON DIOXIDE 30 mmol/L (22-30); CHLORIDE 102 mmol/L (98-107); GLUCOSE 96 mg/dL (75-110); POTASSIUM 4.4 mmol/L (3.6-5.0); TOTAL PROTEIN 6.2 g/dL (6.3-8.2)
[2018-03-30] MEDS: ONDANSETRON 4 MG TAB.RAPDIS PO SCH ×4 (08:03→16:45)
[2018-03-30] MEDS ORDERED: LISINOPRIL 10 MG TABLET PO SCH (10:00)
[2018-03-30] MEDS: DOCUSATE SODIUM 100 MG/10 ML UDC PO SCH ×2 (10:39→17:52)
[2018-03-30] MEDS: ASPIRIN 81 MG TABLET, CHEWABLE PO SCH (10:39)
--- NOTE | 2018-03-30 11:46 | EKG REPORT ---
SEVERITY:- BORDERLINE ECG - SINUS RHYTHM LVH BY VOLTAGE BORDERLINE ST ELEVATION, ANTEROLATERAL LEADS : Confirmed by: Padmini Jama 30-Mar-2018 11:45:49
[2018-03-30] MEDS: LISINOPRIL 5 MG TABLET PO SCH (11:49)
[2018-03-30] MEDS: CEFTRIAXONE SODIUM 1,000 MG in DEXTROSE 5%-WATER 50 ML IV SCH (16:40)
[2018-03-30] MEDS: ACETAMINOPHEN 325 MG TABLET PO PRN (18:06)
[2018-03-30] MEDS ORDERED: OXYCODONE-ACETAMINOPHEN 5-325 MG TABLET PO PRN (18:37)
--- NOTE | 2018-03-30 18:45 | PDOC PROGRESS REPORT ---
Subjective Progress Note for:: 03/30/18 Subjective:: Patient had one episode of vomiting last night and she has been having productive cough since yesterday. Otherwise no acute events. Chest x-ray showed right upper lobe infiltrate likely due to chemical pneumonitis or aspiration pneumonia. She was going to be transferred to [facility] for her transfer was counseled for possible pneumonia. Will start on empiric antibiotics, sputum culture, blood culture and antitussives. 03/29/2018. On my encounter patient is resting comfortably in bed unfortunately cannot communicate very well due to her severe a aphasia. Not seems to be in 03/30/2018. No acute events overnight. On my encounter patient is resting in her bed seems to be a little bit tachypneic on my questioning patient is more cooperative and answering most of my questions appropriately. She stating that she is always short of breath and also having generalized chest pain which is comes and goes and lasts about 1-2 hours sharp in nature nonradiating. Still coughing. P.o. tolerant and having normal bowel movement she has a Villaseñor cath with normal urine output. Was just sent her to inpatient rehab today however she has developed a pneumonia and is still symptomatic. Reason For Visit: HYPERKALEMIA, INTRACTABLE PAIN FALLS Physical Exam Vital Signs: Temp Pulse Resp BP Pulse Ox 99.0 F 96 20 147/96 H 98 03/30/18 16:00 03/30/18 16:00 03/30/18 16:00 03/30/18 16:00 03/30/18 16:00 Intake & Output 03/29/18 03/30/18 03/31/18 06:59 06:59 06:59 Intake Total 351 425 250 Output Total 875 1100 Balance -524 -675 250 Weight 133.7 kg 133 kg General appearance: PRESENT: no acute distress, well-developed, well-nourished Head exam: PRESENT: atraumatic, normocephalic Respiratory exam: PRESENT: clear to auscultation santa. ABSENT: rales, rhonchi, wheezes Cardiovascular exam: PRESENT: RRR. ABSENT: diastolic murmur, rubs, systolic murmur Extremities exam: PRESENT: +1 edema, other - Right upper posterior thigh and buttock region stage I/II ulcer about 5 x 5 cm. Clean dressing and clean wound no sign of active discharge or infection. Neurological exam: PRESENT: alert, awake, oriented to person, CN II-XII grossly intact, other - Otherwise neurologically unchanged. Results Laboratory Results: 03/30/18 05:44 03/30/18 05:44 03/30/18 03/30/18 05:44 05:44 WBC 9.2 RBC 4.17 Hgb 11.2 L Hct 35.3 L MCV 85 MCH 26.8 L MCHC 31.6 L RDW 16.1 H Plt Count 339 Seg Neutrophils % 72.1 Lymphocytes % 14.8 Monocytes % 8.6 Eosinophils % 3.5 Basophils % 1.0 Absolute Neutrophils 6.7 Absolute Lymphocytes 1.4 Absolute Monocytes 0.8 Absolute Eosinophils 0.3 Absolute Basophils 0.1 Sodium 142.0 Potassium 4.4 Chloride 102 Carbon Dioxide 30 Anion Gap 10 BUN 26 H Creatinine 1.14 Est GFR ( Amer) 56 L Est GFR (Non-Af Amer) 47 L Glucose 96 Calcium 8.4 Total Bilirubin 0.6 AST 33 ALT 36 Alkaline Phosphatase 74 Total Protein 6.2 L Albumin 2.7 L 03/20/18 03/20/18 03/21/18 23:25 23:25 05:32 Creatine Kinase 2185 H 1567 H CK-MB (CK-2) 2.55 Troponin I 0.031 03/21/18 03/21/18 03/21/18 05:32 11:33 11:33 Creatine Kinase 1211 H CK-MB (CK-2) 1.84 1.47 Troponin I 0.032 0.034 03/30/18 03/30/18 11:15 17:05 Creatine Kinase CK-MB (CK-2) Troponin I 0.022 0.025 Impressions: Femur X-Ray 03/20/18 19:22 IMPRESSION: Degenerative joint disease at the knee. No acute abnormality in the femur. Pelvis X-Ray 03/20/18 19:22 IMPRESSION: Lower lumbar degenerative changes. No acute abnormality in the pelvis. Carotid Doppler Study 03/21/18 00:00 IMPRESSION: NO HEMODYNAMICALLY SIGNIFICANT STENOSIS. Head MRI 03/21/18 05:34 IMPRESSION: Acute nonhemorrhagic infarct left parasagittal frontal lobe and anterior cerebral artery distribution Moderate chronic small vessel ischemic change in the hemispheric white matter with old bilateral thalamic lacunar infarcts EVIDENCE OF ACUTE STROKE: Yes. Head CT 03/24/18 00:00 IMPRESSION: Mild progression of the left parietal infarction. No evidence of hemorrhagic conversion. EVIDENCE OF ACUTE STROKE: NO. Venous Doppler Study 03/26/18 00:00 IMPRESSION: NO EVIDENCE DVT OR SVT IN THE RIGHT ARM. Chest X-Ray 03/29/18 00:00 IMPRESSION: Early or developing right upper lobe infiltrate Assessment & Plan - Diagnosis (1) Pneumonia Is this a current diagnosis for this admission?: Yes Plan: Aspiration versus chemical pneumonitis. No Leukocytosis. Patient is still having a productive cough and complaining of mild shortness of breath. Refusing her antitussives. Ceftriaxone and metronidazole IV. Follow-up sputum and blood culture. (2) Acute left arterial ischemic stroke, GERSON (anterior cerebral artery) Is this a current diagnosis for this admission?: Yes Plan: Continue antiplatelets and statins. Continue PT OT ST. Pending transfer to [facility] for rehab. (3) Dyslipidemia Is this a current diagnosis for this admission?: Yes Plan: Continue statins. (4) Decubital ulcer Qualifiers: Pressure injury location: thigh Pressure injury stage: stage 2 Laterality : right Qualified Code(s): L89.212 - Pressure ulcer of right hip, stage 2 Is this a current diagnosis for this admission?: Yes Plan: Continue wound care, pressure offloading. (5) Hypertension Is this a current diagnosis for this admission?: No Plan: Not controlled. Will lower down cautiously to avoid triggering expansion of underlying stroke. Increase Coreg to 12.5 twice daily. Monitor vitals. Adjust dose as needed. (6) Chest pain Qualifiers: Chest pain type: chest pain on breathing Qualified Code(s): R07.1 - Chest pain on breathing; R07.81 - Pleurodynia Is this a current diagnosis for this admission?: Yes Plan: Pleuritic likely caused due to underlying pneumonia. Of note it is difficult to know for sure if she is actually having chest pain because of her underlying stroke whenever she asked about anything she keeps saying yes. 2D echo on 03/21/2018 showed normal ejection fraction with mild to moderate diastolic dysfunction. Initial troponins 0.022 and 0.025. and 0.30 on admission.
[2018-03-31] MEDS: GUAIFENESIN SYRP 200 MG/10 ML UDC PO SCH ×3 (01:27→10:21)
[2018-03-31] MEDS: ONDANSETRON HCL INJ/PF 4 MG/2 ML SDV IV PRN (02:25)
[2018-03-31] MEDS: HEPARIN SOD (PORCINE) 5,000 UNIT/ML 1 ML SYRINGE SUBCUT SCH (05:03)
[2018-03-31] MEDS: METRONIDAZOLE 500 MG/NS RTU 500 MG/100 ML RTUPB IV SCH (05:03)
[2018-03-31 07:28] LABS: ABSOLUTE BASOPHILS # (AUTO) 0.1 10^3/uL (0.0-0.2); ABSOLUTE EOSINOPHILS # (AUTO) 0.4 10^3/uL (0.0-0.6); ABSOLUTE LYMPHOCYTES (AUTO) 1.4 10^3/uL (0.5-4.7); ABSOLUTE MONOCYTES (AUTO) 0.8 10^3/uL (0.1-1.4); ABSOLUTE NEUT (AUTO) 7.9 10^3/uL (1.7-8.2); BASOPHILS % (AUTO) 0.7 % (0-2); EOSINOPHILS % (AUTO) 3.4 % (0-6); HEMATOCRIT 34.6 % (36.0-47.0); MEAN CORPUSCULAR HEMOGLOBIN 27.1 pg (27.0-33.4); MEAN CORPUSCULAR HGB CONC 31.6 g/dL (32.0-36.0); MEAN CORPUSCULAR VOLUME 86 fl (80-97); MONOCYTES % (AUTO) 7.5 % (3-13); PLATELET COUNT 326 10^3/uL (150-450); RED BLOOD COUNT 4.03 10^6/uL (3.72-5.28); RED CELL DISTRIBUTION WIDTH 16.4 % (11.5-14.0); SEGMENTED NEUTROPHILS % (AUTO) 75.4 % (42-78); TOTAL CELLS COUNTED % (AUTO) 100 %; WHITE BLOOD COUNT 10.5 10^3/uL (4.0-10.5)
[2018-03-31 07:48] LABS: ALANINE AMINOTRANSFERASE 33 U/L (9-52); ALKALINE PHOSPHATASE 71 U/L (38-126); ANION GAP 8 (5-19); ASPARTATE AMINO TRANSFERASE 33 U/L (14-36); BILIRUBIN,DIRECT 0.3 mg/dL (0.0-0.4); BILIRUBIN,TOTAL 0.7 mg/dL (0.2-1.3); BLOOD UREA NITROGEN 31 mg/dL (7-20); CALCIUM 8.3 mg/dL (8.4-10.2); CARBON DIOXIDE 31 mmol/L (22-30); CHLORIDE 103 mmol/L (98-107); GLUCOSE 101 mg/dL (75-110); POTASSIUM 4.2 mmol/L (3.6-5.0); SODIUM 141.9 mmol/L (137-145); TOTAL PROTEIN 6.7 g/dL (6.3-8.2)
[2018-03-31] MEDS: ONDANSETRON 4 MG TAB.RAPDIS PO SCH ×2 (10:07→10:21)
[2018-03-31] MEDS: DOCUSATE SODIUM 100 MG/10 ML UDC PO SCH ×2 (10:11→10:24)
[2018-03-31] MEDS: CARVEDILOL 12.5 MG TABLET PO SCH (10:21)
[2018-03-31] MEDS: ASPIRIN 81 MG TABLET, CHEWABLE PO SCH (10:21)
[2018-03-31] MEDS: LISINOPRIL 5 MG TABLET PO SCH (10:21)
[2018-03-31] MEDS: CEFTRIAXONE SODIUM 1,000 MG in DEXTROSE 5%-WATER 50 ML IV SCH (10:22)
[2018-03-31] MEDS: SILVER SULFADIAZINE 1% CREAM 400 GM TP SCH (10:48)
--- NOTE | 2018-03-31 11:23 | PDOC TRANSFER SUMMARY ---
General Admission Date/PCP: 03/20/18 21:10 Resuscitation Status: Do Not Resuscitate - Transfer Diagnosis (1) Pneumonia Is this a current diagnosis for this admission?: Yes (2) Acute left arterial ischemic stroke, GERSON (anterior cerebral artery) Is this a current diagnosis for this admission?: Yes (3) Dyslipidemia Is this a current diagnosis for this admission?: Yes (4) Decubital ulcer Is this a current diagnosis for this admission?: Yes (5) Hypertension Is this a current diagnosis for this admission?: No (6) Chest pain Is this a current diagnosis for this admission?: Yes - Transfer Medications Transfer Medications: Current Medications Acetaminophen (Tylenol 325 Mg Tablet) 650 mg PO Q4HP PRN PRN Reason: FOR PAIN OR TEMP Stop: 04/19/18 21:13 Last Admin: 03/30/18 18:06 Dose: 650 mg Al Hydrox/Mg Hydrox/Simethicone (Maalox Plus Susp 30 Udcup) 30 ml PO Q6HP PRN PRN Reason: HEARTBURN Stop: 04/19/18 21:13 Aspirin (Aspirin 81 Mg Chewable Tablet) 324 mg PO DAILY PREM Stop: 04/26/18 11:29 Last Admin: 03/31/18 10:21 Dose: 324 mg Atorvastatin Calcium (Lipitor 80 Mg Tablet) 80 mg PO QHS PREM Stop: 04/20/18 21:59 Last Admin: 03/30/18 21:57 Dose: 80 mg Carvedilol (Coreg 12.5 Mg Tablet) 12.5 mg PO Q12 PREM Stop: 04/28/18 08:29 Last Admin: 03/31/18 10:21 Dose: 12.5 mg Docusate Sodium (Colace Udc 100 Mg/10 Ml Oral Soln) 100 mg PO BID PREM Stop: 04/26/18 11:29 Last Admin: 03/31/18 10:24 Dose: 100 mg Guaifenesin (Robitussin Syrup 200 Mg/10 Ml Ud Cup) 200 mg PO Q4 PREM Stop: 04/28/18 09:59 Last Admin: 03/31/18 10:21 Dose: 200 mg Heparin Sodium (Porcine) (Heparin Inj 5,000 Units/Ml 1 Ml Syringe) 5,000 unit SUBCUT Q8 PREM Stop: 04/19/18 21:59 Last Admin: 03/31/18 05:03 Dose: 5,000 unit Hydralazine HCl (Apresoline Inj/Pf 20 Mg/1 Ml Sdv) 10 mg IV Q6HP PRN PRN Reason: Sbp>160 Stop: 04/19/18 21:13 Last Admin: 03/27/18 17:17 Dose: 10 mg Ceftriaxone Sodium 1,000 mg/ (Dextrose) 50 mls @ 100 mls/hr IV DAILY [facility] Stop: 04/06/18 14:59 Last Admin: 03/31/18 10:22 Dose: 100 mls/hr, 100 mls/hr Metronidazole (Flagyl Rtu 500 Mg/Ns 100ml Premix) 500 mg in 100 mls @ 100 mls/ hr IV Q8 [facility] Stop: 04/05/18 13:59 Last Infusion: 03/31/18 06:06 Dose: Infused Influenza Virus Vaccine Quadrival (Fluarix Adlt Quad Vac 0.5 Ml Syr) 0.5 ml IM .DISCHARGE PRN PRN Reason: THIS MED IS NOT "PRN" Stop: 04/20/18 00:45 Lisinopril (Prinivil 5 Mg Tablet) 5 mg PO DAILY [facility] Stop: 04/29/18 10:59 Last Admin: 03/31/18 10:21 Dose: 5 mg Ondansetron HCl (Zofran Inj/Pf 4 Mg/2 Ml Sdv) 4 mg IV Q6HP PRN PRN Reason: FOR NAUSEA/VOMITING Stop: 04/24/18 21:01 Last Admin: 03/31/18 02:25 Dose: 4 mg Ondansetron HCl (Zofran Odt 4 Mg Tablet) 4 mg PO AC [facility] Stop: 04/24/18 10:59 Last Admin: 03/31/18 10:21 Dose: 4 mg Oxycodone/Acetaminophen (Percocet 5-325 Mg Tablet) 1 tab PO Q6HP PRN PRN Reason: FOR PAIN SCALE 4-5 Stop: 04/06/18 18:36 Last Admin: 03/30/18 19:40 Dose: 1 tab Silver Sulfadiazine (Silvadene 1% Cream 400 Gm) 1 applic TP Q12 [facility] Stop: 04/24/18 21:59 Last Admin: 03/31/18 10:48 Dose: 1 applic Sodium Chloride (Saline Flush 2.5 Ml Monoject Prefil Syrin) 2.5 ml IV Q8 [facility] Stop: 04/20/18 21:59 Last Admin: 03/31/18 05:03 Dose: 2.5 ml - Allergies Allergies/Adverse Reactions: No Known Allergies Allergy (Verified 03/20/18 16:28) Hospital Course Hospital Course: Patient had one episode of vomiting last night and she has been having productive cough since yesterday. Otherwise no acute events. Chest x-ray showed right upper lobe infiltrate likely due to chemical pneumonitis or aspiration pneumonia. She was going to be transferred to [facility] for her transfer was counseled for possible pneumonia. Will start on empiric antibiotics, sputum culture, blood culture and antitussives. 03/29/2018. On my encounter patient is resting comfortably in bed unfortunately cannot communicate very well due to her severe a aphasia. Not seems to be in 03/30/2018. No acute events overnight. On my encounter patient is resting in her bed seems to be a little bit tachypneic on my questioning patient is more cooperative and answering most of my questions appropriately. She stating that she is always short of breath and also having generalized chest pain which is comes and goes and lasts about 1-2 hours sharp in nature nonradiating. Still coughing. P.o. tolerant and having normal bowel movement she has a Villaseñor cath. 03/31/2018. No acute events overnight. Patient is comfortably sitting in her bed in no acute distress however unfortunately due to her aphasia she answers yes and no to pretty much all questions. When asked if she is having pain she says no or cough she says no. When asked when she had for lunch and dinner she just states yes. She does follow command. She is p.o. tolerant and having normal bowel Villaseñor catheter in. Overnight vitals have been stable. Cultures have been negative so far. She has been afebrile and systolic blood pressures have been running in 130s and she is saturating in high 90s on room air. Pulmonary and cardiac examination unremarkable, she is to have severe a fascia with unchanged right-sided hemiparesis. (1) Pneumonia Aspiration versus chemical pneumonitis. No Leukocytosis or bandemia.. On the day of discharge patient is denying having any cough or shortness of breath. Refusing her antitussives. Yesterday she was mildly tachypneic but today on physical examination she is not tachypneic and does not seem to be in any kind of distress. Day 3 of ceftriaxone and metronidazole IV. Will switch to levofloxacin for another 3 days and follow-up culture. (2) Acute left arterial ischemic stroke, GERSON (anterior cerebral artery) Continue antiplatelets and statins. Continue PT OT ST. Pending transfer to [place] for rehab. Carotid Doppler Study 03/21/18 NO HEMODYNAMICALLY SIGNIFICANT STENOSIS. Head MRI 03/21/18 05:34 Acute nonhemorrhagic infarct left parasagittal frontal lobe and anterior cerebral artery distribution Moderate chronic small vessel ischemic change in the hemispheric white matter with old bilateral thalamic lacunar infarcts Head CT 03/24/18 00:00 Mild progression of the left parietal infarction. No evidence of hemorrhagic conversion. EVIDENCE OF ACUTE STROKE: NO. Venous Doppler Study 03/26/18 00:00 NO EVIDENCE DVT OR SVT IN THE RIGHT ARM. 2D echo 03/21/2018. Showed no source of thrombus, normal ejection fraction with mild to moderate diastolic dysfunction. (3) Dyslipidemia Continue statins. (4) Decubital ulcer Continue wound care, pressure offloading. (5) Hypertension Not controlled. Will lower down cautiously to avoid triggering expansion of underlying stroke. Increase Coreg to 12.5 twice daily. Monitor vitals. Adjust dose as needed. (6) Chest pain Pleuritic likely caused due to underlying pneumonia. Of note it is very hard to discern if she is having actually chest pain because of her aphasia she says say yes no to pretty much all questions. Yesterday when asked her that if she has chest pain she says yes but today she is saying no. \\ 2D echo on 03/21/2018 showed normal ejection fraction with mild to moderate diastolic dysfunction. Initial troponins 0.022,0.025, 0.17 and 0.30 on admission. Physical Exam Vital Signs: Temp Pulse Resp BP Pulse Ox 97.6 F 94 17 137/95 H 97 03/31/18 07:36 03/31/18 07:36 03/31/18 07:36 03/31/18 07:36 03/31/18 07:36 Intake & Output 03/30/18 03/31/18 04/01/18 06:59 06:59 06:59 Intake Total 425 743 Output Total 1100 Balance -675 743 Weight 133 kg 134 kg General appearance: PRESENT: no acute distress, well-developed, well-nourished Respiratory exam: PRESENT: clear to auscultation santa. ABSENT: rales, rhonchi, wheezes Cardiovascular exam: PRESENT: RRR. ABSENT: diastolic murmur, rubs, systolic murmur GI/Abdominal exam: PRESENT: normal bowel sounds, soft. ABSENT: distended, guarding, mass, organolmegaly, rebound, tenderness Musculoskeletal exam: PRESENT: other - Right upper posterior thigh and buttock region stage I/II ulcer about 5 x 5 cm. Clean dressing and clean wound no sign of active discharge or infection. Neurological exam: PRESENT: alert, awake, oriented to person, CN II-XII grossly intact, aphasic Results Laboratory Results: 03/31/18 06:36 03/31/18 06:36 03/31/18 03/31/18 06:36 06:36 WBC 10.5 RBC 4.03 Hgb 11.0 L Hct 34.6 L MCV 86 MCH 27.1 MCHC 31.6 L RDW 16.4 H Plt Count 326 Seg Neutrophils % 75.4 Lymphocytes % 13.0 Monocytes % 7.5 Eosinophils % 3.4 Basophils % 0.7 Absolute Neutrophils 7.9 Absolute Lymphocytes 1.4 Absolute Monocytes 0.8 Absolute Eosinophils 0.4 Absolute Basophils 0.1 Sodium 141.9 Potassium 4.2 Chloride 103 Carbon Dioxide 31 H Anion Gap 8 BUN 31 H Creatinine 1.12 Est GFR ( Amer) 58 L Est GFR (Non-Af Amer) 48 L Glucose 101 Calcium 8.3 L Total Bilirubin 0.7 AST 33 ALT 33 Alkaline Phosphatase 71 Total Protein 6.7 Albumin 3.0 L 03/20/18 03/20/18 03/21/18 23:25 23:25 05:32 Creatine Kinase 2185 H 1567 H CK-MB (CK-2) 2.55 Troponin I 0.031 03/21/18 03/21/18 03/21/18 05:32 11:33 11:33 Creatine Kinase 1211 H CK-MB (CK-2) 1.84 1.47 Troponin I 0.032 0.034 03/30/18 03/30/18 11:15 17:05 Creatine Kinase CK-MB (CK-2) Troponin I 0.022 0.025 Impressions: Femur X-Ray 03/20/18 19:22 IMPRESSION: Degenerative joint disease at the knee. No acute abnormality in the femur. Pelvis X-Ray 03/20/18 19:22 IMPRESSION: Lower lumbar degenerative changes. No acute abnormality in the pelvis. Carotid Doppler Study 03/21/18 00:00 IMPRESSION: NO HEMODYNAMICALLY SIGNIFICANT STENOSIS. Head MRI 03/21/18 05:34 IMPRESSION: Acute nonhemorrhagic infarct left parasagittal frontal lobe and anterior cerebral artery distribution Moderate chronic small vessel ischemic change in the hemispheric white matter with old bilateral thalamic lacunar infarcts EVIDENCE OF ACUTE STROKE: Yes. Head CT 03/24/18 00:00 IMPRESSION: Mild progression of the left parietal infarction. No evidence of hemorrhagic conversion. EVIDENCE OF ACUTE STROKE: NO. Venous Doppler Study 03/26/18 00:00 IMPRESSION: NO EVIDENCE DVT OR SVT IN THE RIGHT ARM. Chest X-Ray 03/29/18 00:00 IMPRESSION: Early or developing right upper lobe infiltrate
[2018-03-31 12:28] VITALS: BP 147/82
== END 2018-03-31 12:36 | DRG 64 ==
LOC: ER 15:59 → EH 21:10 → 3N 03-21 00:17 → 4N 03-26 01:30
PROVIDERS: ADMIT Internal Medicine; ATTEND Internal Medicine
DX: I63.522 Cerebral infarction due to unspecified occlusion or stenosis of left anterior cerebral artery (principal); J69.0 Pneumonitis due to inhalation of food and vomit; M62.82 Rhabdomyolysis; G93.40 Encephalopathy, unspecified; Z68.42 Body mass index [BMI] 45.0-49.9, adult; I10 Essential (primary) hypertension; L89.312 Pressure ulcer of right buttock, stage 2; E86.0 Dehydration; R47.01 Aphasia; E66.01 Morbid (severe) obesity due to excess calories; E78.5 Hyperlipidemia, unspecified; E87.5 Hyperkalemia; Z66 Do not resuscitate; Z91.81 History of falling; Z79.82 Long term (current) use of aspirin; Z87.891 Personal history of nicotine dependence
CPT/HCPCS: 36415; 51702; 70450; 70551; 71045; 72170; 80048; 80053; 80061; 80307; 81001; 82550; 82553; 82803; 82962; 83605; 83735; 84100; 84439; 84443; 84481; 84484; 85025; 85027; 85610; 87040; 87086; 93005; 93010; 93306; 93880; 93971; 96361; 96365; 99285; G8978-GP; G8979-GP; G8987-GO; G8988-GO; G9162-GN; G9163-GN; J0360; J0696; J1644; J1885; J1940; J2270; J2405; J2543; J3370; J3490; J7030; J7120; S0119